=== PATIENT | female | born 1975 ===

== ENCOUNTER 2021-08-14 09:14 | Outpatient (REF) | payer OTHER, SELFPAY | END 2021-08-14 09:15 | disposition home or self-care (01) | LOC: HO.LAB 09:14 | PROVIDERS: PCP Internal Medicine; Visit Provider Internal Medicine | DX: Z20.822 Contact with and (suspected) exposure to COVID-19 (principal) | CPT/HCPCS: C9803; U0003; U0005 ==

== ENCOUNTER 2022-02-05 09:25 | Emergency (ER) | payer OTHER, SELFPAY ==
--- NOTE | ~2022-02-05 | CT_ITS ---
EXAMINATION: CT ABDOMEN AND PELVIS WITHOUT CONTRAST CLINICAL INFORMATION: Left-sided abdominal pain COMPARISON: CT abdomen pelvis 08/27/2019 TECHNIQUE: Multidetector volumetric imaging was performed from the superior aspect of the liver through the pubic symphysis. Sagittal and coronal reformatted images were obtained on the technologist's workstation. This CT examination was performed using dose optimization techniques as appropriate, variously including the following: *Automated exposure control *Adjustment of mA and/or kV according to patient size (this includes techniques or standardized protocols for targeted exams where dose is matched to indication/reason for exam; i.e. extremities or head) *Use of iterative reconstruction technique DLP: 551 mGy-cm FINDINGS: LUNG BASES: The lung bases are clear. Heart size is normal. There is a small hiatal hernia. LIVER, GALLBLADDER, AND BILIARY TREE: The liver is normal in size, shape, and attenuation. No focal hepatic lesion or biliary ductal dilatation is present. The gallbladder is unremarkable with no evidence of radiopaque gallstones, gallbladder wall thickening, or obvious pericholecystic inflammatory changes. PANCREAS: Unremarkable. SPLEEN: Unremarkable. ADRENAL GLANDS: Unremarkable. KIDNEYS AND URETERS: There is a 5 mm radiopaque calculi left UVJ with mild hydronephrosis. In addition there are 4 mm radiopaque calculi in upper and lower pole left kidney. There are approximately 8.10 cm from the skin line. There are two 3 mm radiopaque calculi upper pole BLADDER: Unremarkable. GASTROINTESTINAL TRACT: There is scattered diverticula and stool seen throughout the colon without distention. The small bowel loops are normal caliber. ABDOMINAL WALL: No significant hernia is appreciated. LYMPH NODES: Normal. VASCULAR: There is atherosclerotic calcification of abdominal aorta without aneurysmal dilatation. PELVIC VISCERA: The uterus is not visualized likely surgically removed. No pelvic mass of free fluid seen. There is no abnormal pelvic lymph nodes. OSSEOUS STRUCTURES: No lytic or sclerotic process seen. There is mild ventral spondylosis. CT/CT abdomen pelvis wo con IMPRESSION: 5 mm obstructive radiopaque calculi left UPJ with mild hydronephrosis. Nonobstructive bilateral radiopaque renal calculi. Colonic diverticulosis without diverticulitis. Fleischner guidelines were followed.
[2022-02-05 09:31] VITALS: BP 136/79; PULSE 85; RESP 17; TEMP 36.6; O2SAT 98; BMI 31.1
--- NOTE | 2022-02-05 11:29 | ED_ITS ---
HPI - Abdominal Pain General Chief Complaint: Abdominal Pain Stated Complaint: abd pain/lower back pain/nausea Time Seen by Provider: 02/05/22 11:28 Source: patient Mode of arrival: ambulatory Limitations: no limitations History of Present Illness HPI narrative: 46-year-old female came in for evaluation of left-sided abdominal pain. Pain started 2 days ago as a dull aching pain mainly in the left lower quadrant radiates to the left CVA area, pain is constant for 2 days, causing nausea but no vomiting, no fever chills, normal bowel movement, declined any dysuria, no urinary frequency. Patient had surgical history of hysterectomy and appendectomy. Patient had similar pain in the past when she had a kidney stone that required surgical intervention for kidney stone removal. Related Data Previous Rx's Medication Instructions Recorded oxycodone 5 mg tablet 5 mg PO Q8H PRN #7 tab 02/05/22 prednisone 20 mg tablet 20 mg PO BID #8 tab 02/05/22 tamsulosin 0.4 mg capsule (Flomax) 0.4 mg PO DAILY #6 cap 02/05/22 Allergies Allergy/AdvReac Type Severity Reaction Status Date / Time clindamycin [CLINDAMYCIN] Allergy Unknown UNKNOWN Unverified 08/08/20 15:56 azithromycin Allergy Diarrhea Verified 02/05/22 11:50 Clindamycin HCl Allergy Unknown Diarrhea Uncoded 02/05/22 11:50 Review of Systems Review of Systems All other systems are reviewed and are negative Constitutional: Reports as per HPI and Reports no additional constitutional complaints Eyes: Reports as per HPI and Reports no additional eye complaints Reports system reviewed and no additional complaints, except as documented Cardiovascular: Reports as per HPI and Reports no additional cardiovascular complaints Respiratory: Reports as per HPI and Reports no additional respiratory complaints Gastrointestinal: Reports as per HPI and Reports no additional gastrointestinal complaints Genitourinary: Reports no additional female genitourinary complaints Musculoskeletal: Reports no additional musculoskeletal complaints Skin/Breast: Reports system reviewed and no additional complaints, except as docu Psychiatric: Reports no additional psychiatric complaints Endocrine: Reports no additional endocrine complaints Hematologic/Lymphatic: Reports no additional hematologic/lymphatic complaints Allergic/Immunologic: Reports no additional allergic/immunologic complaints Reports system reviewed and no additional complaints, except as documented and Reports Abnormal speech present PMFSH Past Medical History Medical History Asthma Psoriasis Social History Social History Alcohol intake: never Patient Tobacco Use Status: Never used Tobacco Use of substances other than those prescribed or required for medical reasons: No Advance Directives: No Advance Directives Information Provided: No Patient : No Physical Exam ED Vital Signs: Vital Signs - 24 hr 02/05/22 09:31 02/05/22 11:36 Temperature 98 F Pulse Rate 85 71 Respiratory Rate 17 14 Blood Pressure 136/79 116/64 Pulse Oximetry 98 100 BMI result Body Mass Index 31.1 Vital signs have been reviewed as appeared to be correct. Blood pressure normal. Heart rate normal. Respiration rate normal. Temperature normal. Oxygen saturation normal. Appearance: Alert. Oriented X3. No acute distress. Head: Normal external exam. Normocephalic. Atraumatic. No [place] signs noted. No raccoon eyes noted Eyes: PERRLA. EOMI. Conjunctiva and sclera normal. Eyelids normal. ENT: TM's Normal. Pharynx normal. Uvula midline. Moist mucous membranes. No trismus noted. No drooling noted. No muffled voice noted. Neck: Normal inspection. Neck supple. FROM. No adenopathy. Thyroid Normal. No meningeal signs. No neck mass noted. CVS: Normal heart rate and rhythm. Heart sound normal. No murmurs noted. Pulses normal throughout. Respiratory: No respiratory distress. Painless inspiration. Breath sounds normal. No wheezes/rales/rhonchi noted. Chest nontender. No accessory muscle usage noted or decreased air movement noted. Abdomen: Soft and nontender. Bowel sounds normal in all 4 quadrants. No distention noted. No organomegaly noted. No visible injury noted. Back: Left CVA tenderness. Full range of motion noted. Skin: Skin warm and dry. Normal skin color. Normal skin turgor. No rashes/lesions/lacerations noted. Extremities: No lower extremity edema. Extremities exhibit normal range of motion. Extremities nontender. Neuro: Oriented X 3. Cranial nerve exam: II-XII are grossly intact No motor deficit. No sensory deficit. Reflexes normal. Course Course Course Narrative: Assessment and plan. 46-year-old female history of kidney stone came in with left-sided abdominal/left flank pain, CT showed 5 mm obstructing stone in the UPJ, the case was reviewed with Dr. Davis from Urology who recommended to discharge patient home with prednisone/Flomax/analgesia/outpatient follow-up with him. Patient was instructed to return to the ED if worsening of his symptoms. MDM - Abdominal Pain Lab Data Attestation: I reviewed the patient's lab results. Result diagrams: 02/05/22 11:42 02/05/22 11:42 Labs: Lab Results 02/05/22 02/05/22 02/05/22 Range/Units 11:42 11:42 11:42 WBC 8.2 (4.8-10.8) X10*3/uL RBC 4.37 (4.20-5.50) X10*6/uL Hgb 12.9 (12.0-16.0) g/dl Hct 39.9 (37.0-47.0) % MCV 91.3 (80.0-98.0) fL MCH 29.5 (27.0-33.0) pg MCHC 32.3 (31.0-35.0) g/dl RDW 12.3 (11.0-16.0) % Plt Count 235 (160-400) X10*3/uL MPV 10.3 (9.4-12.3) fL Immature Gran % (Auto) 0.2 (0.0-0.4) % Neut % (Auto) 68.6 (45-73) % Lymph % (Auto) 24.2 (20-40) % [place] % (Auto) 6.3 (2-11) % Eos % (Auto) 0.5 (0-4) % Baso % (Auto) 0.2 (0-2) % Lymph # (Auto) 2.0 (1.2-4.9) X10*3/uL [place] # (Auto) 0.5 (0.1-1.2) X10*3/uL Eos # (Auto) 0.0 (0.0-0.4) X10*3/uL Baso # (Auto) 0.0 (0.0-0.2) X10*3/uL Abs Immat Gran (auto) 0.02 (0.00-0.03) X10*3/uL Absolute Neuts (auto) 5.6 (2.0-8.3) x10*3/uL Absolute Nucleated RBC 0.000 (0.0-0.012) X10*3/uL Nucleated RBC % (auto) 0.0 (0.0-0.2) /100WBC Sodium 140 (135-145) mmol/L Potassium 4.7 (3.3-5.1) mmol/L Chloride 106 (96-108) mmol/L Carbon Dioxide 26 (22-29) mmol/L Anion Gap 13 (12-20) BUN 15 (9-16) mg/dL Creatinine 0.61 (0.5-1.4) mg/dL Estim Creat Clear Calc 108.4 Estimated GFR > 60 Random Glucose 111 (60-115) mg/dL Calcium 9.6 (8.4-10.2) mg/dL Total Bilirubin 0.3 (0.0-1.0) mg/dL Direct Bilirubin < 0.2 (0.0-0.5) mg/dL AST 20 (5-31) U/L ALT 19 (0-31) U/L Alkaline Phosphatase 59 (39-117) U/L Total Protein 7.1 (6.5-8.0) g/dL Albumin 4.1 (3.5-5.0) g/dL Lipase 54 (8-78) U/L Urine Color YELLOW Urine Appearance HAZY Urine pH 5.5 (5.0-8.0) Ur Specific [place] >= 1.030 H (1.005-1.025) Urine Protein NEG (NEG-TRACE) MG/DL Urine Glucose (UA) NEG (NEG) MG/DL Urine Ketones NEG (NEG) MG/DL Urine Blood 3+ H (NEG) Urine Nitrite NEG (NEG) Ur Leukocyte Esterase NEG (NEG) Urine RBC 15-29 H (0) /HPF Urine WBC 1-4 (0-4) /HPF Ur Squamous Epith Cells 2+ /LPF Urine Bacteria TRACE /LPF Urine Mucus 2+ /LPF Urine Test (NEGATIVE) 02/05/22 Range/Units 11:42 WBC (4.8-10.8) X10*3/uL RBC (4.20-5.50) X10*6/uL Hgb (12.0-16.0) g/dl Hct (37.0-47.0) % MCV (80.0-98.0) fL MCH (27.0-33.0) pg MCHC (31.0-35.0) g/dl RDW (11.0-16.0) % Plt Count (160-400) X10*3/uL MPV (9.4-12.3) fL Immature Gran % (Auto) (0.0-0.4) % Neut % (Auto) (45-73) % Lymph % (Auto) (20-40) % [place] % (Auto) (2-11) % Eos % (Auto) (0-4) % Baso % (Auto) (0-2) % Lymph # (Auto) (1.2-4.9) X10*3/uL [place] # (Auto) (0.1-1.2) X10*3/uL Eos # (Auto) (0.0-0.4) X10*3/uL Baso # (Auto) (0.0-0.2) X10*3/uL Abs Immat Gran (auto) (0.00-0.03) X10*3/uL Absolute Neuts (auto) (2.0-8.3) x10*3/uL Absolute Nucleated RBC (0.0-0.012) X10*3/uL Nucleated RBC % (auto) (0.0-0.2) /100WBC Sodium (135-145) mmol/L Potassium (3.3-5.1) mmol/L Chloride (96-108) mmol/L Carbon Dioxide (22-29) mmol/L Anion Gap (12-20) BUN (9-16) mg/dL Creatinine (0.5-1.4) mg/dL Estim Creat Clear Calc Estimated GFR Random Glucose (60-115) mg/dL Calcium (8.4-10.2) mg/dL Total Bilirubin (0.0-1.0) mg/dL Direct Bilirubin (0.0-0.5) mg/dL AST (5-31) U/L ALT (0-31) U/L Alkaline Phosphatase (39-117) U/L Total Protein (6.5-8.0) g/dL Albumin (3.5-5.0) g/dL Lipase (8-78) U/L Urine Color Urine Appearance Urine pH (5.0-8.0) Ur Specific [place] (1.005-1.025) Urine Protein (NEG-TRACE) MG/DL Urine Glucose (UA) (NEG) MG/DL Urine Ketones (NEG) MG/DL Urine Blood (NEG) Urine Nitrite (NEG) Ur Leukocyte Esterase (NEG) Urine RBC (0) /HPF Urine WBC (0-4) /HPF Ur Squamous Epith Cells /LPF Urine Bacteria /LPF Urine Mucus /LPF Urine Test NEGATIVE (NEGATIVE) Imaging Data CT scan - abdomen: Attestation: I personally reviewed and interpreted this imaging study as follows: Radiologist's impression: 5 mm obstructive radiopaque calculi left UPJ with mild hydronephrosis. Nonobstructive bilateral radiopaque renal calculi.Colonic diverticulosis without diverticulitis.? ? Discharge Plan Discharge Clinical Impression: Calculus of kidney, Renal colic Patient Disposition: Home, Self-Care Instructions: Renal Colic (ED) Prescriptions: New prednisone 20 mg tablet 20 mg PO BID Qty: 8 0RF tamsulosin [Flomax] 0.4 mg capsule 0.4 mg PO DAILY Qty: 6 0RF oxycodone 5 mg tablet 5 mg PO Q8H PRN (Reason: pain) Qty: 7 0RF Referrals: Lily Hobbs MD [Primary Care Provider] - 2 days Hawk Davis MD [Physician] - 2 days
[2022-02-05 11:36] VITALS: BP 116/64; PULSE 71; RESP 14; O2SAT 100
[2022-02-05 11:51] LABS: MANUAL DIFF FLAG NO
[2022-02-05 11:53] LABS: Appearance Urine HAZY; Color Urine YELLOW; Glucose Urine UA NEG (NEG); Leukocyte Esterase Urine NEG (NEG); Nitrite Urine NEG (NEG); PH 5.5 (5.0-8.0); Specific Gravity - Urine >= 1.030 (1.005-1.025); UACC Culture Trigger NO; Urine Blood 3+ (NEG); Urine Ketones NEG (NEG); Urine Protein NEG (NEG-TRACE)
[2022-02-05 11:54] LABS: Basophils Percent Auto 0.2 % (0-2); Eosinophils Percent Auto 0.5 % (0-4); Hematocrit 39.9 % (37.0-47.0); Hemoglobin 12.9 g/dl (12.0-16.0); Imm Gran Abs Auto 0.02 X10*3/uL (0.00-0.03); Imm Gran Pct Auto 0.2 % (0.0-0.4); Lymphocytes Percent Auto 24.2 % (20-40); Mean Corpuscular HGB Conc 32.3 g/dl (31.0-35.0); Mean Corpuscular Hemoglobin 29.5 pg (27.0-33.0); Mean Corpuscular Volume 91.3 fL (80.0-98.0); Mean Platelet Volume 10.3 fL (9.4-12.3); Monocytes Absolute Auto 0.5 X10*3/uL (0.1-1.2); Monocytes Percent Auto 6.3 % (2-11); Neutrophils Absolute Auto 5.6 x10*3/uL (2.0-8.3); Neutrophils Percent Auto 68.6 % (45-73); Platelet Count 235 X10*3/uL (160-400); Red Blood Count 4.37 X10*6/uL (4.20-5.50); Red Cell Distribution Width 12.3 % (11.0-16.0); White Blood Count 8.2 X10*3/uL (4.8-10.8)
[2022-02-05 11:56] LABS: UPreg QC Valid YES; Urine Pregnancy NEGATIVE (NEGATIVE)
[2022-02-05 12:08] LABS: Bacteria Urine TRACE /LPF; Mucus Urine 2+ /LPF; Squamous Epithelial Cell Urine 2+ /LPF
[2022-02-05 12:09] LABS: Alanine Aminotransferase 19 U/L (0-31); Albumin Level 4.1 g/dL (3.5-5.0); Alkaline Phosphatase 59 U/L (39-117); Anion Gap 13 (12-20); Aspartate Amino Transferase 20 U/L (5-31); Bilirubin Direct < 0.2 mg/dL (0.0-0.5); Bilirubin Total 0.3 mg/dL (0.0-1.0); Blood Urea Nitrogen 15 mg/dL (9-16); Calcium 9.6 mg/dL (8.4-10.2); Carbon Dioxide 26 mmol/L (22-29); Chloride 106 mmol/L (96-108); Creatinine Clr Calc Pharmacy 108.4; Estimated Glomerular Filt Rate > 60; Glucose Random 111 mg/dL (60-115); Lipase 54 U/L (8-78); Potassium 4.7 mmol/L (3.3-5.1); Sodium 140 mmol/L (135-145); Total Protein 7.1 g/dL (6.5-8.0)
[2022-02-05] MEDS: 0.9 % Sodium Chloride 1,000 ML 999 ML IV (12:16)
[2022-02-05 15:18] VITALS: BP 117/67; PULSE 72; RESP 16; O2SAT 100
== END 2022-02-05 15:33 | disposition home or self-care (01) ==
PROVIDERS: Emergency Provider Emergency Medicine; PCP Internal Medicine
DX: N13.2 Hydronephrosis with renal and ureteral calculous obstruction (principal); Z90.710 Acquired absence of both cervix and uterus; Z87.442 Personal history of urinary calculi
CPT/HCPCS: 36415; 74176; 80048; 80076; 81001; 81025; 83690; 85025; 96360; 99284

== ENCOUNTER → 2022-02-17 10:04 | Outpatient (BNVA) | payer OTHER, SELFPAY | PROVIDERS: PCP Internal Medicine | DX: Z13.89 Encounter for screening for other disorder (principal) ==

== ENCOUNTER 2022-03-11 07:20 | Day surgery (SDC) | payer OTHER, SELFPAY ==
[2022-03-03 11:38] VITALS: BMI 30.2
--- NOTE | 2022-03-06 11:02 | HO.ANESPROP2 ---
Documented by User: Lindsey Willis NP 03/06/22 11:04 HPI - Anesthesia Eval Consult details Narrative: 46yo F for Left ESWL No previous ESWL PMFSH Active Problems Active Problems: All Active Problems (Updated 03/03/22 @ 11:21 by Yolanda Ng, RN) Renal calculi (Acute) Past Medical History Medical History (Updated 03/03/22 @ 11:21 by Yolanda Ng RN) Arthritis of left knee Asthma Migraines Psoriasis Renal calculi Seizure in childhood Surgical History Surgical History (Updated 03/03/22 @ 11:21 by Yolanda Ng, LULU) History of appendectomy History of cystoscopy History of hysterectomy Social History Social History Are you a primary child care provider to a significant other at home: No Do you presently have visiting nurse or other home services: No Alcohol intake: never Patient Tobacco Use Status: Never used Tobacco Use of substances other than those prescribed or required for medical reasons: No Have you been hit, kicked, punched, or otherwise hurt by someone within the past year? If so, by whom?: No Are you DNR?: No Advance Directives: No Advance Directives Information Provided: Yes Advance Directives on File: No Recently lost weight without trying: No Eating poorly because of decreased appetite: No Nutrition Risks: No Nutritional Risk Patient : No Meds Allergies Allergy/AdvReac Type Severity Reaction Status Date / Time clindamycin [CLINDAMYCIN] Allergy Unknown Diarrhea Verified 03/03/22 11:11 azithromycin Allergy Diarrhea Verified 03/03/22 11:11 oxycodone AdvReac Tachycardia Verified 03/03/22 11:35 Home Medications Medication Instructions Recorded Confirmed Last Taken Type hydroxyzine HCl 25 mg tablet 25 mg PO BID 02/17/22 03/03/22 Unknown History Cosentyx Q4W 03/03/22 Unknown History albuterol sulfate 90 mcg/actuation 1 - 2 puff INHALATION Q4-6H PRN 03/03/22 03/03/22 Unknown History aerosol inhaler fluticasone furoate 100 1 puff INHALATION DAILY 03/03/22 03/03/22 Unknown History mcg-vilanterol 25 mcg/dose inhalation powder (Breo Ellipta) Exam Exam Date and Time: March 06, 2022 1102 Height,Weight and Vital Signs: Height 5 ft 2 in Weight 74.843 kg Pertinent Lab Results Pertinent Lab Results: Laboratory Tests 02/05/22 02/05/22 11:42 11:42 WBC 8.2 Hgb 12.9 Hct 39.9 Plt Count 235 Sodium 140 Potassium 4.7 Chloride 106 Carbon Dioxide 26 BUN 15 Creatinine 0.61 Assessment and Plan Assessment Anesthesia Assessment: Chart Reviewed Documented by User: Rai Christensen MD 03/11/22 08:07 [facility] Past Medical History Medical History (Updated 03/03/22 @ 11:21 by Yolanda Ng RN) Arthritis of left knee Asthma Migraines Psoriasis Renal calculi Seizure in childhood Family History Family history of problems with anesthesia: No Surgical History Surgical History (Updated 03/03/22 @ 11:21 by Yolanda Ng RN) History of appendectomy History of cystoscopy History of hysterectomy History of Problems with Anesthesia: No Social History Social History Are you a primary child care provider to a significant other at home: No Do you presently have visiting nurse or other home services: No Alcohol intake: never Patient Tobacco Use Status: Never used Tobacco Use of substances other than those prescribed or required for medical reasons: No Have you been hit, kicked, punched, or otherwise hurt by someone within the past year? If so, by whom?: No Are you DNR?: No Advance Directives: No Advance Directives Information Provided: Yes Advance Directives on File: No Recently lost weight without trying: No Eating poorly because of decreased appetite: No Nutrition Risks: No Nutritional Risk Patient : No Meds Allergies Allergy/AdvReac Type Severity Reaction Status Date / Time clindamycin [CLINDAMYCIN] Allergy Unknown Diarrhea Verified 03/03/22 11:11 azithromycin Allergy Diarrhea Verified 03/03/22 11:11 oxycodone AdvReac Tachycardia Verified 03/03/22 11:35 Home Medications Medication Instructions Recorded Confirmed Last Taken Type hydroxyzine HCl 25 mg tablet 25 mg PO BID 02/17/22 03/03/22 Unknown History Cosentyx Q4W 03/03/22 Unknown History albuterol sulfate 90 mcg/actuation 1 - 2 puff INHALATION Q4-6H PRN 03/03/22 03/03/22 Unknown History aerosol inhaler fluticasone furoate 100 1 puff INHALATION DAILY 03/03/22 03/03/22 Unknown History mcg-vilanterol 25 mcg/dose inhalation powder (Breo Ellipta) Exam Airway Mallampati Class: II TM Dist: >3cm Neck ROM: Full Loose/Missing/Broken Teeth: No Heart: [id number]+[id number] Lungs: cta b/l Assessment and Plan Assessment Anesthesia Assessment: Anesthesia Plan Discussed Final Anesthetic Review Family History of Problems with Anesthesia: No History of Problems with Anesthesia: No NPO: Yes ASA Class: II Final Preanesthetic Review: No Changes in Pt Med Stat, Meds/Allgs Chart Reviewed, Consent Obtained/Reviewed and Anes Risks/Benef Reviewed Patient Risk: Low Procedure Risk: Low Assessment/Block/Sedation in SS: Assess/Block/Sedation-SS Anesthetic Plan Anesthetic Plan: MAC: and Agree w/ Assess. and Plan Disposition: Standard PACU
[2022-03-11] VITALS (9 sets, daily range): BP systolic 104–119; BP diastolic 58–72; PULSE 63–81; RESP 16–18; TEMP 35.6–36.3; O2SAT 95–100
--- NOTE | ~2022-03-11 | XR_ITS ---
EXAMINATION: XR ABDOMEN KUB CLINICAL INDICATION: ESWL COMPARISON: CT scan of February 05, 2022 and KUB of September 06, 2019 TECHNIQUE: AP view of the abdomen. FINDINGS: The bowel gas pattern is normal with no evidence of ileus or obstruction. The bones are unremarkable. Overlying the region of the expected location of the right kidney there is a 3 mm radiopaque density which may represent a renal calculus. Psoas margins intact. About the left transverse process of L2 there is a 4 mm calcification which may represent a proximal left ureteral calculus. There are also noted to be 2 adjacent 2 mm calculi in 2 adjacent 4 mm calculi about the contour of the left kidney. XR/XR KUB IMPRESSION: Bilateral nephrolithiasis with 4 mm calculus in the location of the proximal left ureter.
[2022-03-11] MEDS: Lactated Ringers 1,000 ML 100 ML IVCONT (07:47)
[2022-03-11] MEDS: Acetaminophen 325 MG TABLET 650 MG PO (07:47)
--- NOTE | 2022-03-11 08:24 | MHC.SHP ---
Pre-Procedural Eval Section A Date of Service: 03/11/22 The patient is an INPATIENT: No Changes since office visit: No Cold of Flu in the past 2 weeks, No New Medical Problems, No Changes in Medication and No Patient answered all questions The History & Physical has been completed within 30 days and I have reviewed it.: Yes Section B Chief Complaint: kidney stone Details of Present Illness: Left ESWL Allergies: Allergies Allergy/AdvReac Type Severity Reaction Status Date / Time clindamycin [CLINDAMYCIN] Allergy Unknown Diarrhea Verified 03/03/22 11:11 azithromycin Allergy Diarrhea Verified 03/03/22 11:11 oxycodone AdvReac Tachycardia Verified 03/03/22 11:35 Review of Systems Sugical H&P ROS: Negative: Constitution, Cardiovascular, Respiratory, Neurological, Psychiatric, Hem-Onc, Allergic/Immunologic, Gastrointestinal, Genitourinary, Musculoskeletal, Integumentary, Endocrine and Eyes/Ears/Nose/Throat Exam Surgical H&P Exam: Normal: HEENT, Normal: Heart, Normal: Lungs, Normal: Extremities, Normal: Abdomen, Normal: Skin and Normal: Neurological Plan Diagnosis/Plan: Unchanged (Left ESWL) I have reviewed the history and physical and performed a pertinent physical examination on my patient. No changes have occurred unless specified.
--- NOTE | 2022-03-11 08:46 | W.PM.OPN ---
Operative Note Operative Note Date of Service: 03/11/22 Narrative: PreOperative Diagnosis: Left upper ureter stone Post Operative Diagnosis: Left upper ureter stone Procedure: Left ureteric ESWL Surgeon: Dr Hawk Davis Anesthesia: mac/sedation Indications for procedure: The patient understands ESWL may be a staged procedure and subsequent intervention may be required based on imaging after ESWL. They also understand there is a risk of bleeding to the kidney, infection, damage to adjacent organs, and stone migration following the procedure. - Imaging - left 5 mm upper ureteric stone Procedure: After informed consent was verified the patient was brought to the operating room and placed in a supine position. Anesthesia was performed per protocol. Safety pause time-out was performed. Imaging was displayed in the room and laterality confirmed. ESWL was performed. Targeting with fluoroscopy Power stable at 120 HZ A total of 3000 shocks were given. Targetted imaging with ultrasound/fluoroscopy showed stone smudging suggestive of disintegration. The patient tolerated the procedure well and was transferred to the recovery area upon completion. Post procedure imaging will be organized. There was no evidence for flank discoloration.
[2022-03-11] MEDS: Ketorolac Tromethamine 15 MG/ML VIAL IVPUSH (09:23)
[2022-03-11] MEDS: traMADoL HCL 50 MG TABLET PO (09:27)
[2022-03-11] MEDS: fentaNYL citrate/PF 100 MCG/2 ML VIAL 50 MCG IVPUSH (09:35)
== END 2022-03-11 10:45 | disposition home or self-care (01) ==
PROVIDERS: PCP Internal Medicine; Visit Provider Urology
PROC: (CPT 50590; principal; 2022-03-11 10:00)
DX: N20.0 Calculus of kidney (principal); Z87.442 Personal history of urinary calculi; J45.909 Unspecified asthma, uncomplicated; L40.9 Psoriasis, unspecified; Z88.1 Allergy status to other antibiotic agents
CPT/HCPCS: 50590; 74018; J1885; J2250; J3010

== ENCOUNTER → 2022-04-03 10:38 | Outpatient (BNVA) | payer OTHER, SELFPAY | PROVIDERS: PCP Internal Medicine; Visit Provider Urology | DX: N20.0 Calculus of kidney (principal) ==

== ENCOUNTER 2022-04-21 14:36 | Outpatient (REF) | payer OTHER, SELFPAY ==
--- NOTE | ~2022-04-21 | US_ITS ---
EXAMINATION: US RETROPERITONEAL LIMITED (RENAL ONLY) CLINICAL INFORMATION: Calculus of kidney. COMPARISON: XR abdomen KUB 03/11/2022 and 09/06/2019. CT abdomen and pelvis without contrast 02/05/2022. US retroperitoneal limited (renal only) 11/08/2019. TECHNIQUE: Real-time imaging of the kidneys. FINDINGS: RIGHT KIDNEY: 12.1 x 4.7 x 5.8 cm (SAG x AP x TRV). There is increased echogenicity of the renal pyramids. Renal cortical thickness is normal. No focal parenchymal lesions or hydronephrosis. There are multiple nonobstructive calculi, largest in the upper pole measuring 0.4 cm. LEFT KIDNEY: 11.6 x 5.2 x 5.3 cm (SAG x AP x TRV). There is increased echogenicity of the renal pyramids. Renal cortical thickness is normal. No focal parenchymal lesions or hydronephrosis. There are multiple nonobstructive calculi, largest in the lower pole measuring 0.7 cm. US/US renal BI IMPRESSION: Nonobstructive bilateral renal calculi. Increased echogenicity of the renal pyramids which could be seen with medullary nephrocalcinosis. Recommend clinical correlation.
== END 2022-04-21 14:37 | disposition home or self-care (01) ==
LOC: HO.HMGCX 14:36
PROVIDERS: Visit Provider Urology
DX: N20.0 Calculus of kidney (principal)
CPT/HCPCS: 76775

== ENCOUNTER 2022-10-26 15:59 | Outpatient (REF) | payer OTHER, SELFPAY ==
--- NOTE | ~2022-10-26 | US_ITS ---
EXAMINATION: US RETROPERITONEAL LIMITED (RENAL ONLY) CLINICAL INFORMATION: Calculus of kidney. COMPARISON: Renal ultrasound 04/21/2022 and 11/08/2019. X-ray KUB 03/11/2022 and 09/06/2019. CT abdomen and pelvis 02/05/2022. TECHNIQUE: Real-time imaging of the kidneys. FINDINGS: RIGHT KIDNEY: 10.8 x 5.1 x 5.2 cm (SAG x AP x TRV). The kidney is normal in size, and contour. There are echogenic renal pyramids suggestive of medullary nephrocalcinosis. Renal cortical thickness is normal. There are multiple stones, largest measuring 5 mm. No focal parenchymal lesions or hydronephrosis. LEFT KIDNEY: 10.7 x 5.1 x 5.6 cm (SAG x AP x TRV). The kidney is normal in size and contour. There are echogenic renal pyramids suggestive of medullary nephrocalcinosis. Renal cortical thickness is normal. There are multiple stones, largest measuring 5 mm. No focal parenchymal lesions or hydronephrosis. US/US renal BI IMPRESSION: Bilateral renal stones and question medullary nephrocalcinosis. No hydronephrosis..
== END 2022-10-26 16:00 | disposition home or self-care (01) ==
LOC: HO.US 15:59
PROVIDERS: Visit Provider Urology
DX: N20.0 Calculus of kidney (principal)
CPT/HCPCS: 76775

== ENCOUNTER → 2022-11-17 15:02 | Outpatient (BNVA) | payer OTHER, SELFPAY | PROVIDERS: PCP Internal Medicine; Visit Provider Urology | DX: N20.0 Calculus of kidney (principal) ==

== ENCOUNTER 2023-04-01 10:21 | Emergency (ER) | payer OTHER, SELFPAY ==
--- NOTE | ~2023-04-01 | XR_ITS ---
EXAMINATION: XR CHEST CLINICAL INFORMATION: Dyspnea for one week. COMPARISON: None available. TECHNIQUE: 2 views of the chest were obtained. FINDINGS: Normal appearance of the cardiomediastinal silhouette. Mild left greater than right platelike opacities in the lung bases. No pleural effusion or pneumothorax. No acute osseous abnormalities. The visualized upper abdomen is within normal limits. XR/XR chest 2V IMPRESSION: Mild platelike opacities in the lung bases are in favor to represent subsegmental atelectasis. Although early infiltrates cannot be entirely excluded in the appropriate clinical context.
--- NOTE | 2023-04-01 10:22 | ECG_ITS ---
Test Reason : chest pain Blood Pressure : / mmHG Vent. Rate : 077 BPM Atrial Rate : 077 BPM P-R Int : 130 ms QRS Dur : 098 ms QT Int : 364 ms P-R-T Axes : 047 020 050 degrees QTc Int : 411 ms Normal sinus rhythm Low voltage QRS Borderline ECG No previous ECGs available Referred By: Generic ED Physician Electronically Signed By:JENN BAILEY
[2023-04-01 10:33] VITALS: BP 136/73; PULSE 83; RESP 20; TEMP 36.6; O2SAT 99; BMI 31.1
--- NOTE | 2023-04-01 10:51 | ED_ITS ---
HPI - General Adult General Chief complaint: Upper Respiratory Symptoms Stated complaint: SOB/ Chest pain Time Seen by Provider: 04/01/23 10:40 Source: patient Mode of arrival: ambulatory Limitations: no limitations History of Present Illness HPI narrative: 48-year-old female presents with shortness of breath. The shortness of breath started 1 week ago. The symptoms are constant. Is worse with exertion. She a lso has a pleuritic chest pain. She has a nonproductive cough. She denies any fevers or chills. She has been using albuterol nebulizers and inhalers without relief. She has been on steroids for 1 week. She had a chest x-ray on Wednesday which was reportedly normal. She does describe some orthopnea, but denies any PND or lower extremity edema. No history of PE or DVT. She is a nonsmoker. No sick contacts that she is aware of. Related Data Home Medications Medication Instructions Recorded Confirmed hydroxyzine HCl 25 mg tablet 25 mg PO BID 02/17/22 11/17/22 Cosentyx Q4W 03/03/22 11/17/22 albuterol sulfate 90 mcg/actuation 1 - 2 puff inhalation Q4-6H PRN 03/03/22 11/17/22 aerosol inhaler cough fluticasone furoate 100 1 puff inhalation DAILY 03/03/22 11/17/22 mcg-vilanterol 25 mcg/dose inhalation powder (Breo Ellipta) Previous Rx's Medication Instructions Recorded allopurinol 100 mg tablet 100 mg PO DAILY 90 days #90 tabs 11/17/22 pyridoxine (vitamin B6) 50 mg 50 mg PO DAILY #90 caps 11/17/22 capsule amoxicillin 875 mg tablet 875 mg PO BID #20 tabs 04/01/23 benzonatate 200 mg capsule 200 mg PO TID PRN cough #20 caps 04/01/23 fexofenadine 180 mg tablet 180 mg PO DAILY #20 tabs 04/01/23 (Monik Allergy) fluticasone furoate 200 1 inh inhalation DAILY #60 ea 04/01/23 mcg-vilanterol 25 mcg/dose inhalation powder (Breo Ellipta) fluticasone propionate 50 2 spray intranasal DAILY #16 grams 04/01/23 mcg/actuation nasal spray,suspension (Flonase Allergy Relief) Allergies Allergy/AdvReac Type Severity Reaction Status Date / Time clindamycin [CLINDAMYCIN] Allergy Unknown Diarrhea Verified 11/17/22 15:04 azithromycin Allergy Diarrhea Verified 11/17/22 15:04 oxycodone AdvReac Tachycardia Verified 11/17/22 15:04 [facility] Past Medical History Medical History Arthritis of left knee Asthma Migraines Psoriasis Renal calculi Seizure in childhood Surgical History History of appendectomy History of cystoscopy History of hysterectomy Social History Social History Are you a primary manager care management to a significant other at home: No Do you presently have visiting nurse or other home services: No Alcohol intake: never Patient Tobacco Use Status: Never used Tobacco Advance Directives: No Advance Directives Information Provided: Yes Physical Exam ED Vital Signs: Vital Signs - 24 hr 04/01/23 10:33 04/01/23 11:04 Temperature 97.9 F Pulse Rate 83 73 Respiratory Rate 20 15 Blood Pressure 136/73 Pulse Oximetry 99 Oxygen Delivery Method Room Air BMI result Body Mass Index 31.1 GEN: Well developed, no acute distress, alert, oriented HEENT: Normocephalic, atraumatic, normal external ears, nose appears normal, no oropharyngeal edema or exudates Eyes: Normal to appearance Neck: Supple, no lymphadenopathy Respiratory: Talks in complete sentences, no respiratory distress, clear to auscultation bilaterally, prolonged expiration Cardiovascular: Regular rate and rhythm, no murmurs rubs or gallops Abdomen: Soft, nontender, nondistended, no guarding, no rebound Back: No CVA tenderness Extremities: No clubbing cyanosis or edema Neurologic: No focal neurologic deficits, cranial nerves 2-12 intact, strength is 5/5 bilaterally Skin: No rash Course Course Course Narrative: Vertebral year old bruise shortness of breath. Exam revealed prolonged expiration, no prior to wheezes or crackles. There is no lower extremity edema. Will treat patient symptomatically, check lab tests and re-evaluate Reevaluation(s) Reevaluation #1: Patient is feeling moderately improved at this time. Will treat for possible sinus/bronchitis. Patient will start nasal steroids, inhaled steroids, amoxicillin, cough suppressant medications Time: 13:27 Medications Administered Discontinued Medications Generic Name Dose Route Start Last Admin Trade Name Kristyn PRN Reason Stop Dose Admin Albuterol Sulfate 5 mg/ 0 mg 04/01/23 10:51 04/01/23 11:00 Albuterol/Ipratropium 3 ml INHALE 04/01/23 10:52 5 each ONCE ONE Administration Medical Decision Making Medical Decision Making [facility] Narrative: Patient presents with acute dyspnea, cough, pleuritic type chest Pain. Differential diagnosis includes upper respiratory infection, pneumonia, COVID, CHF, cardiac chest pain, musculoskeletal chest Doubt PE. Perc criteria are 0. Plan: Treat with DuoNeb, chest x-ray, laboratory analysis were frequent evaluations consider admission based on laboratory results and clinical improvem ent. Differential Diagnosis Differential Diagnoses: The differential diagnosis associated with the presentation includes (See above) Lab Data [facility] Lab Attestation statement: I reviewed the patient's lab results. 04/01/23 12:34 04/01/23 11:56 Labs: Lab Results 04/01/23 04/01/23 04/01/23 Range/Units 11:39 11:39 11:56 WBC (4.8-10.8) X10*3/uL RBC (4.20-5.50) X10*6/uL Hgb (12.0-16.0) g/dl Hct (37.0-47.0) % MCV (80.0-98.0) fL MCH (27.0-33.0) pg MCHC (31.0-35.0) g/dl RDW (11.0-16.0) % Plt Count (160-400) X10*3/uL MPV (9.4-12.3) fL Immature Gran % (Auto) (0.0-0.4) % Neut % (Auto) (45-73) % Lymph % (Auto) (20-40) % [place] % (Auto) (2-11) % Eos % (Auto) (0-4) % Baso % (Auto) (0-2) % Lymph # (Auto) (1.2-4.9) X10*3/uL [place] # (Auto) (0.1-1.2) X10*3/uL Eos # (Auto) (0.0-0.4) X10*3/uL Baso # (Auto) (0.0-0.2) X10*3/uL Abs Immat Gran (auto) (0.00-0.03) X10*3/uL Absolute Neuts (auto) (2.0-8.3) x10*3/uL Absolute Nucleated RBC (0.0-0.012) X10*3/uL Nucleated RBC % (auto) (0.0-0.2) /100WBC Sodium 143 (135-145) mmol/L Potassium 3.7 D (3.3-5.1) mmol/L Chloride 107 (96-108) mmol/L Carbon Dioxide 24 (22-29) mmol/L Anion Gap 16 (12-20) BUN 15 (9-16) mg/dL Creatinine 0.69 (0.5-1.4) mg/dL Estim Creat Clear Calc 93.8 Estimated GFR > 60 Random Glucose 91 (60-115) mg/dL Calcium 9.5 (8.4-10.2) mg/dL Troponin I High Sens (<3.5-17.0) ng/L B-Natriuretic Peptide (<100) pg/mL COVID-19 (DAR) Negative (Negative) COVID-19 Clin Com See Note Influenza Type A (ELÍAS) Negative (Negative) Influenza Type B (ELÍAS) Negative (Negative) Influenza A & B Note See Note 04/01/23 04/01/23 04/01/23 Range/Units 11:56 12:33 12:34 WBC 11.7 H (4.8-10.8) X10*3/uL RBC 4.20 (4.20-5.50) X10*6/uL Hgb 12.1 (12.0-16.0) g/dl Hct 37.3 (37.0-47.0) % MCV 88.8 (80.0-98.0) fL MCH 28.8 (27.0-33.0) pg MCHC 32.4 (31.0-35.0) g/dl RDW 13.2 (11.0-16.0) % Plt Count 307 D (160-400) X10*3/uL MPV 9.2 L (9.4-12.3) fL Immature Gran % (Auto) 0.7 H (0.0-0.4) % Neut % (Auto) 47.3 (45-73) % Lymph % (Auto) 42.0 H (20-40) % [place] % (Auto) 8.8 (2-11) % Eos % (Auto) 0.8 (0-4) % Baso % (Auto) 0.4 (0-2) % Lymph # (Auto) 4.9 (1.2-4.9) X10*3/uL [place] # (Auto) 1.0 (0.1-1.2) X10*3/uL Eos # (Auto) 0.1 (0.0-0.4) X10*3/uL Baso # (Auto) 0.1 (0.0-0.2) X10*3/uL Abs Immat Gran (auto) 0.08 H (0.00-0.03) X10*3/uL Absolute Neuts (auto) 5.6 (2.0-8.3) x10*3/uL Absolute Nucleated RBC 0.000 (0.0-0.012) X10*3/uL Nucleated RBC % (auto) 0.0 (0.0-0.2) /100WBC Sodium (135-145) mmol/L Potassium (3.3-5.1) mmol/L Chloride (96-108) mmol/L Carbon Dioxide (22-29) mmol/L Anion Gap (12-20) BUN (9-16) mg/dL Creatinine (0.5-1.4) mg/dL Estim Creat Clear Calc Estimated GFR Random Glucose (60-115) mg/dL Calcium (8.4-10.2) mg/dL Troponin I High Sens < 2.7 (<3.5-17.0) ng/L B-Natriuretic Peptide 24 (<100) pg/mL COVID-19 (DAR) (Negative) COVID-19 Clin Com Influenza Type A (ELÍAS) (Negative) Influenza Type B (ELÍAS) (Negative) Influenza A & B Note Independent Interpretation I performed an independent interpretation of an: EKG (Normal sinus rhythm heart rate 77, no acute ST elevations or depressions, no prolonged intervals, low voltage) and Plain X-Ray Prescription Management I considered prescription management with: Antibiotic Chronic Conditions Patient?s care impacted by: Other (Asthma) Discharge Plan Discharge Clinical Impression: Acute dyspnea Patient Disposition: Home, Self-Care Instructions: Asthma (ED), How to Use a Metered-Dose Inhaler (ED) Prescriptions: New fluticasone propionate [Flonase Allergy Relief] 50 mcg/actuation spray,suspension 2 spray intranasal DAILY Qty: 16 0RF Rx Instructions: administer into each nostril amoxicillin 875 mg tablet 875 mg PO BID Qty: 20 0RF benzonatate 200 mg capsule 200 mg PO TID PRN (Reason: cough) Qty: 20 0RF fluticasone furoate-vilanterol [Breo Ellipta] 200-25 mcg/dose blister with device 1 inh inhalation DAILY Qty: 60 0RF fexofenadine [Monik Allergy] 180 mg tablet 180 mg PO DAILY Qty: 20 0RF No Action albuterol sulfate 90 mcg/actuation HFA aerosol inhaler 1 - 2 puff inhalation Q4-6H PRN (Reason: cough) Breo Ellipta 100-25 mcg/dose blister with device 1 puff inhalation DAILY Cosentyx Q4W hydroxyzine HCl 25 mg tablet 25 mg PO BID pyridoxine (vitamin B6) 50 mg capsule 50 mg PO DAILY Qty: 90 1RF allopurinol 100 mg tablet 100 mg PO DAILY 90 Days Qty: 90 1RF Referrals: Gabby Hoff MD [Primary Care Provider] - 3 days Stand Alone Forms: Work/School Release
[2023-04-01 11:04] VITALS: PULSE 73; RESP 15; O2SAT 99
[2023-04-01 12:02] LABS: COVID-19 Test Negative (Negative); IDNOW Serial# 08D9AD1C; IDNOW Serial# BCCEAD1C; Influenza A Negative (Negative); Influenza B2 Negative (Negative)
[2023-04-01 12:25] LABS: Anion Gap 16 (12-20); Blood Urea Nitrogen 15 mg/dL (9-16); Calcium 9.5 mg/dL (8.4-10.2); Carbon Dioxide 24 mmol/L (22-29); Chloride 107 mmol/L (96-108); Creatinine Clr Calc Pharmacy 93.8; Estimated Glomerular Filt Rate > 60; Glucose Random 91 mg/dL (60-115); Potassium 3.7 mmol/L (3.3-5.1); Sodium 143 mmol/L (135-145)
[2023-04-01 12:31] LABS: Troponin-I High Sensitivity < 2.7 ng/L (<3.5-17.0)
[2023-04-01 12:37] LABS: MANUAL DIFF FLAG NO
[2023-04-01 12:38] LABS: Basophils Absolute Auto 0.1 X10*3/uL (0.0-0.2); Basophils Percent Auto 0.4 % (0-2); Eosinophils Absolute Auto 0.1 X10*3/uL (0.0-0.4); Eosinophils Percent Auto 0.8 % (0-4); Hematocrit 37.3 % (37.0-47.0); Hemoglobin 12.1 g/dl (12.0-16.0); Imm Gran Abs Auto 0.08 X10*3/uL (0.00-0.03); Imm Gran Pct Auto 0.7 % (0.0-0.4); Lymphocytes Absolute Auto 4.9 X10*3/uL (1.2-4.9); Mean Corpuscular HGB Conc 32.4 g/dl (31.0-35.0); Mean Corpuscular Hemoglobin 28.8 pg (27.0-33.0); Mean Corpuscular Volume 88.8 fL (80.0-98.0); Mean Platelet Volume 9.2 fL (9.4-12.3); Monocytes Percent Auto 8.8 % (2-11); Neutrophils Absolute Auto 5.6 x10*3/uL (2.0-8.3); Neutrophils Percent Auto 47.3 % (45-73); Platelet Count 307 X10*3/uL (160-400); Red Cell Distribution Width 13.2 % (11.0-16.0); White Blood Count 11.7 X10*3/uL (4.8-10.8)
[2023-04-01 13:01] LABS: B Type Natriuretic Peptide 24 pg/mL (<100)
== END 2023-04-01 14:29 | disposition home or self-care (01) ==
PROVIDERS: Emergency Provider Emergency Medicine; PCP Internal Medicine
DX: R07.89 Other chest pain (principal); R06.02 Shortness of breath; Z20.822 Contact with and (suspected) exposure to COVID-19; Z20.828 Contact with and (suspected) exposure to other viral communicable diseases; Z79.899 Other long term (current) drug therapy
CPT/HCPCS: 71046; 80048; 83880; 84484; 85025; 87502; 87635; 93005; 94640; 99284

== ENCOUNTER 2023-04-09 08:00 | Outpatient (REF) | payer OTHER, SELFPAY ==
--- NOTE | ~2023-04-09 | US_ITS ---
EXAMINATION: US RETROPERITONEAL LIMITED (RENAL ONLY) CLINICAL INFORMATION: Calculus of kidney. COMPARISON: Renal ultrasound 10/26/2022 and 04/21/2022. CT abdomen and pelvis 02/05/2022. TECHNIQUE: Real-time imaging of the kidneys. FINDINGS: RIGHT KIDNEY: 10.3 x 5.3 x 5.0 cm (SAG x AP x TRV). The kidney is normal in size, contour, and echogenicity. Renal cortical thickness is normal. No focal parenchymal lesions or hydronephrosis. 5 mm upper pole calculus. 6 mm upper pole calculus. LEFT KIDNEY: 10.1 x 5.7 x 5.6 cm (SAG x AP x TRV). The kidney is normal in size, contour, and echogenicity. Renal cortical thickness is normal. No focal parenchymal lesions or hydronephrosis. 4 mm mid pole calculus. US/US renal BI IMPRESSION: Bilateral renal calculi without hydronephrosis..
== END 2023-04-09 08:01 | disposition home or self-care (01) ==
LOC: HO.US 08:00
PROVIDERS: PCP Internal Medicine; Visit Provider Urology
DX: N20.0 Calculus of kidney (principal)
CPT/HCPCS: 76775

== ENCOUNTER 2023-10-13 09:56 | Outpatient (AMB) | payer OTHER, SELFPAY ==
--- NOTE | 2023-10-13 10:33 | MHC.OFFVIS ---
Intake Intake Visit Reasons: 6m follow up/US Intake Note: Patient is Present for Follow Up Urology Medication: Vitamin B6 Antibiotic Allergies: Clindamycin, Azithromycin Blood Thinners: None Allergies clindamycin [CLINDAMYCIN] Allergy (Unknown, Verified 10/13/23 10:45) Diarrhea azithromycin Allergy (Verified 10/13/23 10:45) Diarrhea oxycodone Adverse Reaction (Verified 10/13/23 10:45) Tachycardia HPI HPI Comments History of Present Illness Details Pao is a 48-year-old female who presnts today to the office for a follow-up. 10/13/2023? She is followed today for US results. She was last seen by Hawk Skinner on 11/17/2022 for US. I have reviewed the US retroperitoneum results from 04/09/2023 revealed two stones in the right kidney measuing 5 mm and 6 mm and 4 mm stone in the left kidney. I have given her a Pamphlet on shock wave lithotripsy as well as a pamphlet on ureteroscopy. Review of charts: Last visit: 11/17/2023-- Pao is very pleasant female. She is a patient of Dr. Hobbs. She seen for the following urologic conditions - nephrolithiasis Telemedicine evaluation 15 minute consultation DoxXeko ysabel Video attempted Imaging shows multiple bilateral 5 mm stones Stress need to increase fluid for hyper hydration She states urinary drinks about 24 oz per day Encouraged her to increase to 64 Continue hydration and interval surveillance Nephrolithiasis Longstanding Multiple prior interventions Imaging - 02/10 left 5 mm UPJ stone with mild hydronephrosis and 2 5 mm stones of in kidney - 05/13 renal ultrasound with small stone bilateral, stone clear from UPJ - 11/12 renal ultrasounds multiple small stones bilateral Intervention - 03/13 left ESWL Stone analysis - mixed calcium oxalate 50% Therapeutic plan - surveillance imaging 10/13/2023: Evaluation today?UA? leukocytes: negative; blood: trace. 10/13/2023: Plan: CT stone protocol was ordered urgently with a Tele-health follow-up to discuss the results. [facility] Medical History Arthritis of left knee Asthma Migraines Psoriasis Renal calculi Seizure in childhood Surgical History History of appendectomy History of cystoscopy History of hysterectomy Social History Are you a primary critical care rn to a significant other at home: No Do you presently have visiting nurse or other home services: No Alcohol intake: never Patient Tobacco Use Status: Never used Tobacco Review of Systems Const All systems reviewed & are unremarkable except as noted in HPI and below Reports no additional complaints Resp Reports no additional complaints GI Reports no additional complaints Reports as per HPI Musc Reports no additional complaints Physical Exam Telemedicine evaluation Appropriate responses Regular breathing rate and rhythm HEENT Head: Yes normal to inspection Ears: hearing grossly normal bilaterally Eyes General: appearance normal, both eyes and all related structures Neck Neck: Yes normal visual inspection Chest Chest palpation & inspection: normal inspection of the chest Resp Effort & Inspection: normal respiratory effort and able to speak in complete sentences Results AMB Urinalysis, Automated UA Leukoctes 0 Jordan/uL Last Edit by Emilee Go [facility] on 10/13/23 10:52 UA Nitrite Negative Last Edit by Emilee Go [facility] on 10/13/23 10:52 UA Urobilinogen 0.2 mg/dL Last Edit by Emilee Go [facility] on 10/13/23 10:52 UA Protein 0 mg/dL Last Edit by Emilee Go [facility] on 10/13/23 10:52 UA pH 5.5 Last Edit by Emilee Go [facility] on 10/13/23 10:52 UA Blood 10 Paulo/uL Last Edit by Emilee Go [facility] on 10/13/23 10:52 UA Specific [place] 1.020 Last Edit by Emilee Go [facility] on 10/13/23 10:52 UA Ketone Negative Last Edit by Emilee Go [facility] on 10/13/23 10:52 UA Bilirubin 0 mg/dL Last Edit by Emilee Go [facility] on 10/13/23 10:52 UA Glucose 0 mg/dL Last Edit by Emilee Go [facility] on 10/13/23 10:52 Results Reviewed Results Reviewed: Laboratory Last Values Urine pH (Auto) 5.5 10/13/23 10:51 Specific [place] (Auto) 1.020 10/13/23 10:51 Urine Protein (Auto) 0 mg/dL 10/13/23 10:51 Glucose (UA)(Auto) 0 mg/dL 10/13/23 10:51 Urine Ketones (Auto) Negative 10/13/23 10:51 Urine Blood (Auto) 10 Paulo/uL 10/13/23 10:51 Urine Nitrite (Auto) Negative 10/13/23 10:51 Urine Bilirubin (Auto) 0 mg/dL 10/13/23 10:51 Urine Urobilinogen (Auto) 0.2 mg/dL 10/13/23 10:51 Leukocyte Esterase (Auto) 0 Jordan/uL 10/13/23 10:51 Date of Service: 04/09/23 EXAMINATION:? US RETROPERITONEAL LIMITED (RENAL ONLY) CLINICAL INFORMATION: Calculus of kidney. COMPARISON:? Renal ultrasound 10/26/2022 and 04/21/2022. CT abdomen and pelvis 02/05/2022. FINDINGS: RIGHT KIDNEY: 10.3 x 5.3 x 5.0 cm (SAG x AP x TRV). The kidney is normal in size, contour, and echogenicity. Renal cortical thickness is normal. No focal parenchymal lesions or hydronephrosis. 5 mm upper pole calculus. 6 mm upper pole calculus. LEFT KIDNEY: 10.1 x 5.7 x 5.6 cm (SAG x AP x TRV). The kidney is normal in size, contour, and echogenicity. Renal cortical thickness is normal. No focal parenchymal lesions or hydronephrosis. 4 mm mid pole calculus. IMPRESSION:? Bilateral renal calculi without hydronephrosis. Assessment & Plan Assessment & Plan (1) Renal calculi: Comment: mixed calcium oxalate Code(s): N20.0 - Calculus of kidney Plan CT stone protocol was ordered urgently with a Tele-health follow-up to discuss the results. Orders: Orders AMB Urinalysis Automated 10/13/23 Z13.9 - Encounter for screening, unspecified CT abdomen pelvis wo IV con 10/13/23 N20.0 - Calculus of kidney, R10.9 - Unspecified abdominal pain Coding Level of Care Code Est Pt Level 4 (59046) Diagnoses Renal calculi N20.0
== END 2023-10-13 11:30 | disposition home or self-care (01) ==
PROVIDERS: PCP Internal Medicine; Visit Provider Urology
DX: N20.0 Calculus of kidney (principal)
CPT/HCPCS: 99214

== ENCOUNTER → 2023-10-13 09:56 | Outpatient (BNVA) | payer OTHER, SELFPAY | PROVIDERS: PCP Internal Medicine; Visit Provider Urology | DX: N20.0 Calculus of kidney (principal) | CPT/HCPCS: 81003 ==

== ENCOUNTER 2023-11-05 16:18 | Emergency (ER) | payer OTHER, SELFPAY ==
--- NOTE | ~2023-11-05 | CT_ITS ---
EXAMINATION: CT ABDOMEN AND PELVIS WITHOUT CONTRAST CLINICAL INFORMATION: Flank pain. Concern for renal calculi. COMPARISON: None available. TECHNIQUE: Multidetector volumetric imaging was performed from the superior aspect of the liver through the pubic symphysis. Sagittal and coronal reformatted images were obtained on the technologist's workstation. This CT examination was performed using dose optimization techniques as appropriate, variously including the following: *Automated exposure control *Adjustment of mA and/or kV according to patient size (this includes techniques or standardized protocols for targeted exams where dose is matched to indication/reason for exam; i.e. extremities or head) *Use of iterative reconstruction technique DLP: 478 mGy-cm FINDINGS: LUNG BASES: The visualized lung bases are unremarkable. LIVER, GALLBLADDER, AND BILIARY TREE: The liver is normal in size, shape, and attenuation. No focal hepatic lesion or biliary ductal dilatation is present. The gallbladder is unremarkable with no evidence of radiopaque gallstones, gallbladder wall thickening, or obvious pericholecystic inflammatory changes. PANCREAS: Unremarkable. SPLEEN: Unremarkable. ADRENAL GLANDS: Unremarkable. KIDNEYS AND URETERS: The kidneys are normal in size, shape, and attenuation. There are multiple scattered left renal calculi measuring up to 3 mm mid pole left kidney. There is no hydronephrosis. BLADDER: Unremarkable. GASTROINTESTINAL TRACT: The small and large bowel are unremarkable. The appendix is not seen as a separate structure. There is a small hiatal hernia. ABDOMINAL WALL: No significant hernia is appreciated. LYMPH NODES: Normal. VASCULAR: There is mild atherosclerotic plaque of the abdominal aorta. PELVIC VISCERA: There is a 3.1 cm low-density structure within the left adnexa with low to intermediate Hounsfield values up to 15.. OSSEOUS STRUCTURES: Unremarkable. CT/CT abdomen pelvis wo IV con IMPRESSION: Nonobstructing left renal calculi. Small hiatal hernia. 3.1 cm low-density structure within the left adnexa likely a cyst. No acute intra-abdominal process identified. Fleischner guidelines were followed.
[2023-11-05 16:35] VITALS: BP 112/66; PULSE 97; RESP 20; TEMP 36.6; O2SAT 100; BMI 30.7
--- NOTE | 2023-11-05 16:36 | ED.GENADULT ---
HPI - General Adult General Chief complaint: Back Pain/Injury Stated complaint: back pain, kidney stones Time Seen by Provider: 11/05/23 17:37 Source: patient Mode of arrival: ambulatory Limitations: no limitations History of Present Illness HPI narrative: Patient with history kidney stones status post lithotripsy last episode was last year been complaining of pain in the right flank area for last 4 weeks increased on deep inspiration pain radiates to the large right lower abdomen sharp in nature , had slight blood when tested at her PCP office also has nausea pain got worse today Related Data Home Medications Medication Instructions Recorded Confirmed hydroxyzine HCl 25 mg tablet 25 mg PO BID 02/17/22 11/17/22 Cosentyx Q4W 03/03/22 11/17/22 albuterol sulfate 90 mcg/actuation 1 - 2 puff inhalation Q4-6H PRN 03/03/22 11/17/22 aerosol inhaler cough fluticasone furoate 100 1 puff inhalation DAILY 03/03/22 11/17/22 mcg-vilanterol 25 mcg/dose inhalation powder (Breo Ellipta) Previous Rx's Medication Instructions Recorded allopurinol 100 mg tablet 100 mg PO DAILY 90 days #90 tabs 11/17/22 pyridoxine (vitamin B6) 50 mg 50 mg PO DAILY #90 caps 11/17/22 capsule amoxicillin 875 mg tablet 875 mg PO BID #20 tabs 04/01/23 benzonatate 200 mg capsule 200 mg PO TID PRN cough #20 caps 04/01/23 fexofenadine 180 mg tablet 180 mg PO DAILY #20 tabs 04/01/23 (Monik Allergy) fluticasone furoate 200 1 inh inhalation DAILY #60 ea 04/01/23 mcg-vilanterol 25 mcg/dose inhalation powder (Breo Ellipta) fluticasone propionate 50 2 spray intranasal DAILY #16 grams 04/01/23 mcg/actuation nasal spray,suspension (Flonase Allergy Relief) cyclobenzaprine 10 mg tablet 10 mg PO Q8H #20 tabs 11/05/23 Allergies Allergy/AdvReac Type Severity Reaction Status Date / Time clindamycin [CLINDAMYCIN] Allergy Unknown Diarrhea Verified 10/13/23 10:45 azithromycin Allergy Diarrhea Verified 10/13/23 10:45 oxycodone AdvReac Tachycardia Verified 10/13/23 10:45 Review of Systems Review of Systems: Yes all other systems are reviewed and are negative [facility] Past Medical History Medical History Arthritis of left knee Migraines Seizure in childhood Renal calculi Psoriasis Asthma Surgical History History of cystoscopy History of appendectomy History of hysterectomy Social History Social History Are you a primary resident care aid to a significant other at home: No Do you presently have visiting nurse or other home services: No Alcohol intake: former Patient Tobacco Use Status: Never used Tobacco Smoked in Last 30 Days: No Use of substances other than those prescribed or required for medical reasons: No Advance Directives: No Advance Directives Information Provided: No Patient : No Physical Exam ED Vital Signs: Vital Signs - 24 hr 11/05/23 16:35 11/05/23 20:03 11/05/23 20:48 Temperature 97.8 F 98.9 F Pulse Rate 97 86 Respiratory Rate 20 16 16 Blood Pressure 112/66 105/51 L Pulse Oximetry 100 98 Oxygen Delivery Method Room Air Room Air BMI result Body Mass Index 30.7 Appearance: Alert. Oriented X3. No acute distress. Eyes: No pallor ENT: Pharynx normal. Oral Mucosa moist Neck: Normal inspection. Neck supple. CVS: Normal heart rate and rhythm. Pulses normal. Respiratory: No respiratory distress. Equal air entry bilateral, no wheezing/rales/rhonchi Abdomen: Soft and nontender. Bowel sounds are present, no mass palpable, right CVA tenderness + Skin: Skin warm and dry. Normal skin color. Normal skin turgor. Neuro: Oriented X 3. Course Course Course Narrative: RME performed by Katherin Gil PA-C. Patient is a 48 year old assigned female at presenting to the emergency department with flank pain. Labs ordered. Patient placed back in the waiting room pending room availability and results. Medications Administered Discontinued Medications Generic Name Dose Route Start Last Admin Trade Name Freq PRN Reason Stop Dose Admin Sodium Chloride 1,000 mls @ 999 mls/hr 11/05/23 18:13 11/05/23 20:47 Ns IV 11/05/23 19:13 Infused .Q1H1M ONE Infusion Ketorolac Tromethamine 30 mg 11/05/23 18:13 11/05/23 18:44 Ketorolac Tromethamine 30 Mg/Ml Vial IVPUSH 11/05/23 18:14 30 mg ONCE ONE Administration Morphine Sulfate 4 mg 11/05/23 18:13 11/05/23 20:48 Morphine Sulfate 4 Mg/Ml Cartridge IVPUSH 11/05/23 18:14 Not Given ONCE ONE Protocol Ondansetron HCl 4 mg 11/05/23 18:13 11/05/23 18:43 Ondansetron Hcl 4 Mg/2 Ml Vial IVPUSH 11/05/23 18:14 4 mg ONCE ONE Administration Medical Decision Making Medical Decision Making [facility] Narrative: Patient right flank pain CT scan shows nonobstructive stone in left kidney and small ovarian cyst on the left side negative on the right side patient pain likely musculoskeletal Differential Diagnosis Differential Diagnoses: The differential diagnosis associated with the presentation includes Renal colic/pyelonephritis/UTI Admission/Observation Consideration of admission/observation: Escalation of care including admission/observation considered Lab Data [facility] Lab Attestation statement: I reviewed the patient's lab results. 11/05/23 17:12 11/05/23 17:12 Labs: Lab Results 11/05/23 11/05/23 Range/Units 17:12 17:13 WBC 8.3 (4.8-10.8) X10*3/uL RBC 4.60 (4.20-5.50) X10*6/uL Hgb 13.3 (12.0-16.0) g/dl Hct 40.2 (37.0-47.0) % MCV 87.4 (80.0-98.0) fL MCH 28.9 (27.0-33.0) pg MCHC 33.1 (31.0-35.0) g/dl RDW 12.6 (11.0-16.0) % Plt Count 227 D (160-400) X10*3/uL MPV 9.9 (9.4-12.3) fL Immature Gran % (Auto) 0.4 (0.0-0.4) % Neut % (Auto) 84.5 H (45-73) % Lymph % (Auto) 8.7 L (20-40) % Lincoln % (Auto) 5.8 (2-11) % Eos % (Auto) 0.4 (0-4) % Baso % (Auto) 0.2 (0-2) % Lymph # (Auto) 0.7 L (1.2-4.9) X10*3/uL Lincoln # (Auto) 0.5 (0.1-1.2) X10*3/uL Eos # (Auto) 0.0 (0.0-0.4) X10*3/uL Baso # (Auto) 0.0 (0.0-0.2) X10*3/uL Abs Immat Gran (auto) 0.03 (0.00-0.03) X10*3/uL Absolute Neuts (auto) 7.0 (2.0-8.3) x10*3/uL Absolute Nucleated RBC 0.000 (0.0-0.012) X10*3/uL Nucleated RBC % (auto) 0.0 (0.0-0.2) /100WBC PT 11.2 (11.1-13.3) SEC INR 0.9 (0.9-1.1) APTT 28.1 (26.0-36.4) SEC Sodium 142 (135-145) mmol/L Potassium 3.7 (3.3-5.1) mmol/L Chloride 107 (96-108) mmol/L Carbon Dioxide 23 (22-29) mmol/L Anion Gap 16 (12-20) BUN 13 (9-16) mg/dL Creatinine 0.66 (0.5-1.4) mg/dL Estim Creat Clear Calc 97.4 Estimated GFR > 60 Random Glucose 122 H (60-115) mg/dL Calcium 9.4 (8.4-10.2) mg/dL Magnesium 2.0 (1.6-2.6) mg/dL Total Bilirubin 0.8 (0.0-1.0) mg/dL AST 20 (5-31) U/L ALT 13 (0-31) U/L Alkaline Phosphatase 76 (39-117) U/L Total Protein 7.4 (6.5-8.0) g/dL Albumin 4.2 (3.5-5.0) g/dL Urine Color Yellow Urine Appearance Cloudy Urine pH 8.0 (5.0-9.0) Ur Specific P[place] 1.025 (1.005-1.025) Urine Protein Negative (Neg-Trace) mg/dL Urine Glucose (UA) Negative (Negative) mg/dL Urine Ketones Negative (Negative) mg/dL Urine Blood Negative (Negative) Urine Nitrite Negative (Negative) Ur Leukocyte Esterase Negative (Negative) Influenza Type A (PCR) NEGATIVE (Negative) Influenza Type B (PCR) NEGATIVE (Negative) RSV RNA Qual (PCR) NEGATIVE (Negative) SARS-CoV-2 RNA (RT-PCR) NEGATIVE (Negative) Independent Interpretation I performed an independent interpretation of an: CT Scan Radiology Impression Discussion of test interpretation with radiology: I have reviewed the radiologist's reading. Discharge Plan Discharge Clinical Impression: Right flank pain Patient Disposition: Home, Self-Care Instructions: Flank Pain (ED) Additional Instructions: Likely you have musculoskeletal flank pain Could to take your tramadol Flexeril for muscle relaxation Prescriptions: New cyclobenzaprine 10 mg tablet 10 mg PO Q8H Qty: 20 0RF No Action albuterol sulfate 90 mcg/actuation HFA aerosol inhaler 1 - 2 puff inhalation Q4-6H PRN (Reason: cough) Breo Ellipta 100-25 mcg/dose blister with device 1 puff inhalation DAILY Cosentyx Q4W fluticasone propionate [Flonase Allergy Relief] 50 mcg/actuation spray,suspension 2 spray intranasal DAILY Qty: 16 0RF Rx Instructions: administer into each nostril amoxicillin 875 mg tablet 875 mg PO BID Qty: 20 0RF benzonatate 200 mg capsule 200 mg PO TID PRN (Reason: cough) Qty: 20 0RF fluticasone furoate-vilanterol [Breo Ellipta] 200-25 mcg/dose blister with device 1 inh inhalation DAILY Qty: 60 0RF fexofenadine [Monik Allergy] 180 mg tablet 180 mg PO DAILY Qty: 20 0RF hydroxyzine HCl 25 mg tablet 25 mg PO BID pyridoxine (vitamin B6) 50 mg capsule 50 mg PO DAILY Qty: 90 1RF allopurinol 100 mg tablet 100 mg PO DAILY 90 Days Qty: 90 1RF Interventions: ED Discharge Assessment Last Done: 11/05/23 20:56 Discharge Date/Time: 11/05/23 20:57
[2023-11-05 17:18] LABS: MANUAL DIFF FLAG NO
[2023-11-05 17:20] LABS: Basophils Percent Auto 0.2 % (0-2); Eosinophils Percent Auto 0.4 % (0-4); Hematocrit 40.2 % (37.0-47.0); Hemoglobin 13.3 g/dl (12.0-16.0); Imm Gran Abs Auto 0.03 X10*3/uL (0.00-0.03); Imm Gran Pct Auto 0.4 % (0.0-0.4); Lymphocytes Absolute Auto 0.7 X10*3/uL (1.2-4.9); Lymphocytes Percent Auto 8.7 % (20-40); Mean Corpuscular HGB Conc 33.1 g/dl (31.0-35.0); Mean Corpuscular Hemoglobin 28.9 pg (27.0-33.0); Mean Corpuscular Volume 87.4 fL (80.0-98.0); Mean Platelet Volume 9.9 fL (9.4-12.3); Monocytes Absolute Auto 0.5 X10*3/uL (0.1-1.2); Monocytes Percent Auto 5.8 % (2-11); Neutrophils Percent Auto 84.5 % (45-73); Platelet Count 227 X10*3/uL (160-400); Red Cell Distribution Width 12.6 % (11.0-16.0); White Blood Count 8.3 X10*3/uL (4.8-10.8)
[2023-11-05 17:22] LABS: Appearance Urine Cloudy; Color Urine Yellow; Glucose Urine UA Negative (Negative); Leukocyte Esterase Urine Negative (Negative); Nitrite Urine Negative (Negative); Specific Gravity - Urine 1.025 (1.005-1.025); Urine Blood Negative (Negative); Urine Ketones Negative (Negative); Urine Protein Negative (Neg-Trace)
[2023-11-05 17:31] LABS: INTERNATIONAL NORM RATIO 0.9 (0.9-1.1); Prothrombin Time 11.2 SEC (11.1-13.3)
[2023-11-05 17:34] LABS: Partial Thromboplastin Time 28.1 SEC (26.0-36.4)
[2023-11-05 17:35] LABS: Alanine Aminotransferase 13 U/L (0-31); Albumin Level 4.2 g/dL (3.5-5.0); Alkaline Phosphatase 76 U/L (39-117); Anion Gap 16 (12-20); Aspartate Amino Transferase 20 U/L (5-31); Bilirubin Total 0.8 mg/dL (0.0-1.0); Blood Urea Nitrogen 13 mg/dL (9-16); Calcium 9.4 mg/dL (8.4-10.2); Carbon Dioxide 23 mmol/L (22-29); Chloride 107 mmol/L (96-108); Creatinine Clr Calc Pharmacy 97.4; Estimated Glomerular Filt Rate > 60; Glucose Random 122 mg/dL (60-115); Potassium 3.7 mmol/L (3.3-5.1); Sodium 142 mmol/L (135-145); Total Protein 7.4 g/dL (6.5-8.0)
[2023-11-05 17:56] LABS: Influenza A PCR NEGATIVE (Negative); Influenza B PCR NEGATIVE (Negative); Resp Syncy Virus RNA Qual PCR NEGATIVE (Negative); SARS COV2 PCR INHOUSE NEGATIVE (Negative)
[2023-11-05] MEDS: 0.9 % Sodium Chloride 1,000 ML 999 ML IV (18:43)
[2023-11-05] MEDS: ondansetron HCL 4 MG/2 ML VIAL IVPUSH (18:43)
[2023-11-05] MEDS: Ketorolac Tromethamine 30 MG/ML VIAL IVPUSH (18:44)
--- NOTE | 2023-11-05 18:49 | PC.NURSE ---
pt refused morphine at this time, will attemt to control pain with IV Toradol at this time.
[2023-11-05 20:03] VITALS: BP 105/51; PULSE 86; RESP 16; TEMP 37.2; O2SAT 98
[2023-11-05 20:48] VITALS: RESP 16
== END 2023-11-05 20:57 | disposition home or self-care (01) ==
PROVIDERS: Physician Assistant Medical; Emergency Provider Internal Medicine; PCP Internal Medicine
DX: R10.9 Unspecified abdominal pain (principal); R11.2 Nausea with vomiting, unspecified; R10.31 Right lower quadrant pain; Z20.822 Contact with and (suspected) exposure to COVID-19; Z20.828 Contact with and (suspected) exposure to other viral communicable diseases; Z79.899 Other long term (current) drug therapy
CPT/HCPCS: 0241U; 74176; 80053; 81003; 83735; 85025; 85610; 85730; 96361; 96374; 96375; 99284; 99285; J1885; J2270; J2405

== ENCOUNTER 2023-11-19 12:29 | Outpatient (AMB) | payer OTHER, SELFPAY ==
--- NOTE | 2023-11-19 13:00 | A.OFFVIS_ITS ---
Intake Intake Visit Reasons: 3w/CT/FLANK PAIN Intake Note: Patient is Present for Follow Up Urology Medication: Vitamin B6 Antibiotic Allergies: Clindamycin, Azithromycin Blood Thinners: None Kiln Firer Required: No Accompanied by: Daughter Allergies clindamycin [CLINDAMYCIN] Allergy (Unknown, Verified 11/19/23 13:25) Diarrhea azithromycin Allergy (Verified 11/19/23 13:25) Diarrhea oxycodone Adverse Reaction (Verified 11/19/23 13:25) Tachycardia Medication List - Last Reconciled 11/19/23 by Cinthya Bolden MD albuterol sulfate 90 mcg/actuation 1 - 2 puffs inhalation Q4-6H PRN allopurinol 100 mg PO DAILY 90 days benzonatate 200 mg PO TID PRN [Cosentyx Q4W] cyclobenzaprine 10 mg PO Q8H fexofenadine (Monik Allergy) 180 mg PO DAILY fluticasone furoate-vilanterol 100-25 mcg/dose (Breo Ellipta) 1 puff inhalation DAILY fluticasone furoate-vilanterol 200-25 mcg/dose (Breo Ellipta) 1 inh inhalation DAILY fluticasone propionate 50 mcg/actuation (Flonase Allergy Relief) 2 sprays intranasal DAILY hydroxyzine HCl 25 mg PO BID pyridoxine (vitamin B6) 100 mg PO DAILY tamsulosin (Flomax) 0.4 mg PO BEDTIME HPI HPI Comments History of Present Illness Details Pao is a 48-year-old female who presnts today to the office for a fo llow-up. LV--10/13/2023? 11/19/23-- She is followed today with complaints of kidney stone pain . She was in the ED on 11/05/23 and had a CTAP wo contrast done, noting small left non obstructing kidney stones. The patient states that she has pain on her right side extending towards her bladder and she has seen blood in the urine. She showed me a picture of blood in the toilet bowl that she took after urinating at home. She states she is prescribed tramadol by her PCP for the pain. I have reviewed the films as wall as the report with the patient: I reviewed CTAP-11/05/23-- kidneys are normal in size, shape, and attenuation. multiple scattered left renal calculi measuring up to 3 mm mid pole left kidney. Review of chart: Nephrolithiasis Longstanding Multiple prior interventions Stone analysis - mixed calcium oxalate 50% Therapeutic plan - surveillance imaging 11/19/23: Evaluation today?UA? leukocyte s: negative; blood: trace. Plan: 11/19/23--tamsulosin, discussed adding lemon to water patient does not taste of lemon number water urge oranges or orange juice. Refilled allopurinol and vitamin B6 100 mg The patient having prior CT scan order which is pending for today. Although gross hematuria may be secondary to kidney stones the patient is concerned and will schedule follow-up office cystoscopy [facility] Medical History Arthritis of left knee Migraines Seizure in childhood Renal calculi Psoriasis Asthma Surgical History History of cystoscopy History of appendectomy History of hysterectomy Social History Are you a primary home care assistant to a significant other at home: No Do you presently have visiting nurse or other home services: No Alcohol intake: former Patient Tobacco Use Status: Never used Tobacco Review of Systems Const All systems reviewed & are unremarkable except as noted in HPI and below Reports no additional complaints Eyes Reports no additional complaints ENT Reports no additional complaints Card Denies dyspnea Resp Denies cough and Denies dyspnea GI Reports no additional complaints Reports no additional complaints Musc Reports no additional complaints Skin/Breast Denies rash and Denies unusual bruising Neuro Reports no additional complaints Psych Reports no additional complaints Endo Reports no additional complaints Aubrey/Lymph Reports no additional complaints Aller/Immun Reports no additional complaints Results AMB Urinalysis, Automated UA Leukoctes 0 Jordan/uL Last Edit by PETE Turner on 11/19/23 13:12 UA Nitrite Negative Last Edit by PETE Turner on 11/19/23 13:12 UA Urobilinogen 0.2 mg/dL Last Edit by Henry Seth A on 11/19/23 13:1 2 UA Protein 15 mg/dL Last Edit by Henry Rolo, A on 11/19/23 13:12 UA pH 6.0 Last Edit by Henry Seth, A on 11/19/23 13:12 UA Blood 0 Paulo/uL Last Edit by Henry Seth, A on 11/19/23 13:12 UA Specific [place] 1.030 Last Edit by Henry Rolo, A on 11/19/23 13: 12 UA Ketone Negative Last Edit by Henry Seth A on 11/19/23 13:12 UA Bilirubin 0 mg/dL Last Edit by Henry Rolo, A on 11/19/23 13:12 UA Glucose 0 mg/dL Last Edit by Henry Seth A on 11/19/23 13:12 Results Reviewed Results Reviewed: Laboratory Last Values Urine pH (Auto) 6.0 11/19/23 13:10 Specific [place] (Auto) 1.030 11/19/23 13:10 Urine Protein (Auto) 15 mg/dL 11/19/23 13:10 Glucose (UA)(Auto) 0 mg/dL 11/19/23 13:10 Urine Ketones (Auto) Negative 11/19/23 13:10 Urine Blood (Auto) 0 Paulo/uL 11/19/23 13:10 Urine Nitrite (Auto) Negative 11/19/23 13:10 Urine Bilirubin (Auto) 0 mg/dL 11/19/23 13:10 Urine Urobilinogen (Auto) 0.2 mg/dL 11/19/23 13:10 Leukocyte Esterase (Auto) 0 Jordan/uL 11/19/23 13:10 Date of Service: 11/05/23 EXAMINATION: CT ABDOMEN AND PELVIS WITHOUT CONTRAST CLINICAL INFORMATION: Flank pain. Concern for renal calculi. COMPARISON: None available. TECHNIQUE: Multidetector volumetric imaging was performed from the superior aspect of the liver through the pubic symphysis. Sagittal and coronal reformatted images were obtained on the technologist's workstation. This CT examination was performed using dose optimization techniques as appropriate, variously including the following: *Automated exposure control *Adjustment of mA and/or kV according to patient size (this includes techniques or standardized protocols for targeted exams where dose is matched to indication/reason for exam; i.e. extremities or head) *Use of iterative reconstruction technique DLP: 478 mGy-cm FINDINGS: LUNG BASES: The visualized lung bases are unremarkable. LIVER, GALLBLADDER, AND BILIARY TREE: The liver is normal in size, shape, and attenuation. No focal hepatic lesion or biliary ductal dilatation is present. The gallbladder is unremarkable with no evidence of radiopaque gallstones, gallbladder wall thickening, or obvious pericholecystic inflammatory changes. PANCREAS: Unremarkable. SPLEEN: Unremarkable. ADRENAL GLANDS: Unremarkable. KIDNEYS AND URETERS: The kidneys are normal in size, shape, and attenuation. There are multiple scattered left renal calculi measuring up to 3 mm mid pole left kidney. There is no hydronephrosis. BLADDER: Unremarkable. GASTROINTESTINAL TRACT: The small and large bowel are unremarkable. The appendix is not seen as a separate structure. There is a small hiatal hernia. ABDOMINAL WALL: No significant hernia is appreciated. LYMPH NODES: Normal. VASCULAR: There is mild atherosclerotic plaque of the abdominal aorta. PELVIC VISCERA: There is a 3.1 cm low-density structure within the left adnexa with low to intermediate Hounsfield values up to 15.. OSSEOUS STRUCTURES: Unremarkable. IMPRESSION: Nonobstructing left renal calculi. Small hiatal hernia. 3.1 cm low-density structure within the left adnexa likely a cyst. No acute intra-abdominal process identified. Assessment & Plan Assessment & Plan (1) Renal calculi: Comment: mixed calcium oxalate Code(s): N20.0 - Calculus of kidney (2) Gross hematuria: Code(s): R31.0 - Gross hematuria (3) Right flank pain: Code(s): R10.9 - Unspecified abdominal pain Plan Tamsulosin, discussed adding lemon to water patient does not taste of lemon number water urge oranges or orange juice. Refilled allopurinol and vitamin B6 100 mg The patient having prior CT scan order which is pending for today. Although gross hematuria may be secondary to kidney stones the patient is concerned and will schedule follow-up office cystoscopy Orders: Orders AMB Urinalysis Automated Today Z13.9 - Encounter for screening, unspecified Medications: New tamsulosin (Flomax) 0.4 mg PO BEDTIME 30 caps 1RF to help pass stones pyridoxine (vitamin B6) 100 mg PO DAILY 90 tabs 3RF Refilled allopurinol 100 mg PO DAILY 90 days 90 tabs 3RF N20.0 - Calculus of kidney Patient Instructions: The patient had an opportunity to ask questions regarding treatment plan. All questions were answered. Imaging, Laboratory studies and physical exam results were discussed and reviewed in detail. No major barriers to understanding were identified. The patient expressed understanding and agreement with the above treatment plan. The patient is aware they should contact our office by phone for worsening of their current condition or the appearance of new symptoms. Compliance is encouraged with any medications and followup testing that is ordered. It is a privilege to be allowed the opportunity to participate in the urologic care of your patient. If you have any questions or concerns regarding treatment for the above conditions please do not hesitate to contact me. The office telephone contact is [phone]. This note is constructed in part using voice recognition software. While every effort has been made to ensure accuracy compliance aide errors may have been included. Yours sincerely, Cinthya Bolden MD Coding Level of Care Code Est Pt Level 4 (07467) Diagnoses Renal calculi N20.0 Gross hematuria R31.0 Right flank pain R10.9
== END 2023-11-19 13:42 | disposition home or self-care (01) ==
PROVIDERS: PCP Internal Medicine; Visit Provider Urology
DX: N20.0 Calculus of kidney (principal); R31.0 Gross hematuria; R10.9 Unspecified abdominal pain; Z13.9 Encounter for screening, unspecified
CPT/HCPCS: 99214

== ENCOUNTER 2023-11-19 13:46 | Outpatient (REF) | payer OTHER, SELFPAY ==
--- NOTE | ~2023-11-19 | CT_ITS ---
EXAMINATION: CT ABDOMEN AND PELVIS WITHOUT CONTRAST CLINICAL INFORMATION: Right flank pain, calculus of kidney COMPARISON: 11/05/2023/17/22. TECHNIQUE: Multidetector volumetric imaging was performed from the superior aspect of the liver through the pubic symphysis. Sagittal and coronal reformatted images were obtained on the technologist's workstation. This CT examination was performed using dose optimization techniques as appropriate, variously including the following: *Automated exposure control *Adjustment of mA and/or kV according to patient size (this includes techniques or standardized protocols for targeted exams where dose is matched to indication/reason for exam; i.e. extremities or head) *Use of iterative reconstruction technique DLP: 417 mGy-cm FINDINGS: BAG WORKER: Nonobstructive bowel pattern. No abnormal calcifications. Right femoral sclerotic density, likely bone island. LUNG BASES: The visualized lung bases are unremarkable. Small hiatal hernia. Nonenlarged heart. No pericardial effusion. LIVER, GALLBLADDER, AND BILIARY TREE: The liver is normal in size, shape, and attenuation. No focal hepatic lesion or biliary ductal dilatation is present. The gallbladder is unremarkable with no evidence of radiopaque gallstones, gallbladder wall thickening, or obvious pericholecystic inflammatory changes. PANCREAS: Unremarkable. SPLEEN: Unremarkable. ADRENAL GLANDS: Unremarkable. KIDNEYS AND URETERS: The kidneys are normal in size, shape, and attenuation. No hydronephrosis or hydroureter. Punctate right upper pole nonobstructing renal calculus. 4 mm left upper pole and 3 and 4 mm left mid pole nonobstructing renal calculi. No perinephric stranding. BLADDER: Under distended. Redemonstration anterior superior bladder wall fatty deposition. GASTROINTESTINAL TRACT: Small hiatal hernia. Moderately distended stomach. Soft tissue density at GE junction also seen in 2021 exam but not reproduced on 11/05/2023 examination when the stomach was well distended. Nonobstructive bowel pattern. Appendix not seen. No right lower, quadrant inflammatory changes. Diverticulosis without diverticulitis. Mild fecal retention. ABDOMINAL WALL: Small fat filled right inguinal hernia. LYMPH NODES: Normal. VASCULAR: Atherosclerotic calcifications nonaneurysmal aorta. Unremarkable inferior vena cava. PELVIC VISCERA: No pelvic pathology recognized. 3.1 cm low density left adnexal structure on recent CT no longer seen, likely resolved ovarian cyst. OSSEOUS STRUCTURES: Right humeral and pelvic sclerotic densities, CT/CT abdomen pelvis wo IV con IMPRESSION: Nonobstructing bilateral renal calculi. No hydroureteronephrosis. No acute intra-abdominal or pelvic pathology. Fleischner guidelines were followed.
== END 2023-11-19 13:47 | disposition home or self-care (01) ==
LOC: HO.CT 13:46
PROVIDERS: PCP Internal Medicine; Visit Provider Urology
DX: N20.0 Calculus of kidney (principal); R10.9 Unspecified abdominal pain
CPT/HCPCS: 74176; 81003

== ENCOUNTER 2023-12-24 13:11 | Outpatient (AMB) | payer OTHER, SELFPAY ==
--- NOTE | 2023-12-24 13:20 | A.OFFVIS_ITS ---
Intake Intake Visit Reasons: cysto Intake Note: Patient presents today for a CYSTOSCOPY Procedure: Urology Medication: Vitamin B6 Antibiotic Allergies: Clindamycin, Azithromycin Urinalysis test clear for Cysto? YES Disposable Uro-G Cystoscope Cannula: Lot: [id number] Exp: 04/04/2025 Punch Press Feeder Required: No Accompanied by: Self / Same As Patient Allergies clindamycin [CLINDAMYCIN] Allergy (Unknown, Verified 12/24/23 13:21) Diarrhea azithromycin Allergy (Verified 12/24/23 13:21) Diarrhea oxycodone Adverse Reaction (Verified 12/24/23 13:21) Tachycardia HPI HPI Comments History of Present Illness Details 12/24/23--Pao is a 48-year-old female w presnts today to the office for cystoscopy. The patient has complained of intermittent episodes of gross hematuria. Although gross hematuria may be secondary to kidney stones the patient is concerned. 12/24/23--Office cystoscopy findings - no suspicious bladder lesions Review of chart: Nephrolithiasis Longstanding Multiple prior interventions Stone analysis - mixed calcium oxalate 50% Therapeutic plan - surveillance imaging CTAP-11/05/23-- kidneys are normal in size, shape, multiple scattered left renal calculi measuring up to 3 mm mid pole left kidney. Plan: 12/24/23--office cystoscopy-- within normal limits. Continue to monitor kidney stones Allopurinol and vitamin B6 100 mg PFS Medical History Arthritis of left knee Migraines Seizure in childhood Renal calculi Psoriasis Asthma Surgical History History of cystoscopy History of appendectomy History of hysterectomy Social History Are you a primary director critical care to a significant other at home: No Do you presently have visiting nurse or other home services: No Alcohol intake: former Patient Tobacco Use Status: Never used Tobacco Review of Systems Const All systems reviewed & are unremarkable except as noted in HPI and below Reports no additional complaints Eyes Reports no additional complaints ENT Reports no additional complaints Card Denies dyspnea Resp Denies cough and Denies dyspnea GI Reports no additional complaints Reports no additional complaints Musc Reports no additional complaints Skin/Breast Denies rash and Denies unusual bruising Neuro Reports no additional complaints Psych Reports no additional complaints Endo Reports no additional complaints Aubrey/Lymph Reports no additional complaints Aller/Immun Reports no additional complaints Office Procedures Cystoscopy Consent Discussed risk and benefit or proposed procedure with the patient. Information consent for procedure given to the patient. Discussed technical aspects, risks, benefits and alternatives in full. Addressed all of the patient's questions and concerns regarding the procedure. The patient demonstrated knowledge and understanding. They wish to proceed with this procedure. Preparation The patient was prepped in the usual manner. A legal manager was present and in the room. Genitalia was prepped with betadine solution in a sterile manner. Lidocaine Jelly 2% was placed into the urethra and 16Fr flexible Olympus cystoscope was inserted into the meatus after adequate lubrication. Procedure Time out per protocol performed. Bladder Inspection Bladder Inspection: The bladder was inspected in its entirety with utilization retroflexion displaying: Tumor(s): none visualized Trabeculation: N/A Mucosal Erthema: N/A Orifices: normal shape and position Urethra: normal Cystoscopy findings: WNL, no suspicious bladder lesions visualized [id number] DISPOSABLE SCOPE URO-G FLEXIBLE SCOPE Procedure code (CPT) selection complete Office Meds lidocaine HCl 2 % mucosal jelly in applicator Performing Provider: Cinthya Bolden MD Performing Location: [facility] [place] [facility] Administered by: Ethan Petersen LPN on 12/24/23 13:57 Dose Route Admin Location Dispensed Lot Number Expiration Date [facility] Health Insurance Sales Agent 10 mL intra-urethral 20 mL naproxen 500 mg tablet Performing Provider: Cinthya Bolden MD Performing Location: [facility] [place] [facility] Administered by: Ethan Petersen LPN on 12/24/23 13:57 Dose Route Admin Location Dispensed Lot Number Expiration Date [facility] Health Insurance Sales Agent 500 mg PO 1 tab ciprofloxacin HCl 500 mg tablet Performing Provider: Cinthya Bolden MD Performing [facility] [place] [facility] Administered by: Ethan Petersen LPN on 12/24/23 13:57 Dose Route Admin Location Dispensed Lot Number Expiration Date [facility] Health Insurance Sales Agent 500 mg PO 1 tab Results AMB Urinalysis, Automated UA Leukoctes 0 Jordan/uL Last Edit by PETE Turner on 12/24/23 13:54 UA Nitrite Negative Last Edit by PETE Turner on 12/24/23 13:54 UA Urobilinogen 0.2 mg/dL Last Edit by PETE Turner on 12/24/23 13:5 4 UA Protein 0 mg/dL Last Edit by PETE Turner on 12/24/23 13:54 UA pH 6.0 Last Edit by Henry Seth Edgar on 12/24/23 13:54 UA Blood 0 Paulo/uL Last Edit by PETE Turner on 12/24/23 13:54 UA Specific [place] 1.030 Last Edit by PETE Turner on 12/24/23 13: 54 UA Ketone Negative Last Edit by Henry Seth Edgar on 12/24/23 13:54 UA Bilirubin 0 mg/dL Last Edit by PETE Turner on 12/24/23 13:54 UA Glucose 0 mg/dL Last Edit by PETE Turner on 12/24/23 13:54 Results Reviewed Results Reviewed: Laboratory Last Values Urine pH (Auto) 6.0 12/24/23 13:22 Specific [place] (Auto) 1.030 12/24/23 13:22 Urine Protein (Auto) 0 mg/dL 12/24/23 13:22 Glucose (UA)(Auto) 0 mg/dL 12/24/23 13:22 Urine Ketones (Auto) Negative 12/24/23 13:22 Urine Blood (Auto) 0 Paulo/uL 12/24/23 13:22 Urine Nitrite (Auto) Negative 12/24/23 13:22 Urine Bilirubin (Auto) 0 mg/dL 12/24/23 13:22 Urine Urobilinogen (Auto) 0.2 mg/dL 12/24/23 13:22 Leukocyte Esterase (Auto) 0 Jordan/uL 12/24/23 13:22 Assessment & Plan Assessment & Plan (1) Renal calculi: Comment: mixed calcium oxalate Code(s): N20.0 - Calculus of kidney (2) Gross hematuria: Code(s): R31.0 - Gross hematuria Plan Tamsulosin, prn Cont allopurinol and vitamin B6 100 mg Monitor kidney stones Orders: Orders AMB Urinalysis Automated 12/24/23 Z13.9 - Encounter for screening, unspecified AMB Cystoscopy 12/24/23 N20.0 - Calculus of kidney, R10.9 - Unspecified abdominal pain, R31.0 - Gross hematuria Patient Instructions: The patient had an opportunity to ask questions regarding treatment plan. All questions were answered. Imaging, Laboratory studies and physical exam results were discussed and reviewed in detail. No major barriers to understanding were identified. The patient expressed understanding and agreement with the above treatment plan. The patient is aware they should contact our office by phone for worsening of their current condition or the appearance of new symptoms. Compliance is encouraged with any medications and followup testing that is ordered. It is a privilege to be allowed the opportunity to participate in the urologic care of your patient. If you have any questions or concerns regarding treatment for the above conditions please do not hesitate to contact me. The office telephone contact is [phone]. This note is constructed in part using voice recognition software. While every effort has been made to ensure accuracy emergency medicine physician assistant errors may have been included. Yours sincerely, Cinthya Bolden MD Coding Level of Care Code Procedure Only Diagnoses Renal calculi N20.0 Gross hematuria R31.0 CPT Codes Cystoscopy - CPT: [id number] ([id number])
== END 2023-12-24 14:43 | disposition home or self-care (01) ==
PROVIDERS: PCP Internal Medicine; Visit Provider Urology
DX: R31.0 Gross hematuria (principal); R10.9 Unspecified abdominal pain; N20.0 Calculus of kidney; Z13.9 Encounter for screening, unspecified
CPT/HCPCS: 52000

== ENCOUNTER → 2023-12-24 13:11 | Outpatient (BNVA) | payer OTHER, SELFPAY | PROVIDERS: PCP Internal Medicine; Visit Provider Urology | DX: N20.0 Calculus of kidney (principal); R31.0 Gross hematuria | CPT/HCPCS: 52000; 81003 ==

== ENCOUNTER 2024-06-23 09:05 | Outpatient (AMB) | payer OTHER, SELFPAY ==
--- NOTE | 2024-06-23 09:05 | A.OFFVIS_ITS ---
Intake Visit Reasons: 6m follow up Intake Note: Pao is a 49 year old female who presents to the office as a telehealth visit for a 6 month follow up. Blood thinners: None Urology Meds: Tamsulosin Cookie Padder Required: No Accompanied by: Self / Same As Patient Allergies clindamycin [CLINDAMYCIN] Allergy (Unknown, Verified 06/23/24 09:05) Diarrhea azithromycin Allergy (Verified 06/23/24 09:05) Diarrhea oxycodone Adverse Reaction (Verified 06/23/24 09:05) Tachycardia HPI Comments Details: 06/23/24-- FU kidney stones, hematuria, pt states she has been doing well, denies recurrent gross hematuria, has had intermittent back pain not too bothersome. Plan continue to monitor kidneys--check renal US. Cont Allopurinol, Vit B6 100 mg daily. Review of chart: 12/24/23--Pao is a 48-year-old female who presnts today to the office for cystoscopy. The patient has complained of intermittent episodes of gross hematuria. Although gross hematuria may be secondary to kidney stones the patient is concerned. 12/24/23--Office cystoscopy findings - no suspicious bladder lesions h/o - Nephrolithiasis, Longstanding Multiple prior interventions Stone analysis - mixed calcium oxalate 50% Therapeutic plan - surveillance imaging CTAP-11/05/23-- kidneys are normal in size, shape, multiple scattered left renal calculi measuring up to 3 mm mid pole left kidney. [facility] Medical History Arthritis of left knee Migraines Seizure in childhood Renal calculi Psoriasis Asthma Surgical History History of cystoscopy History of appendectomy History of hysterectomy Social History Are you a primary post anesthesia care unit nurse to a significant other at home: No Do you presently have visiting nurse or other home services: No Alcohol intake: former Patient Tobacco Use Status: Never used Tobacco Telehealth Telehealth Telehealth Platform: Telephone Location of provider rendering services: practice address Location of patient: address on file Patient Identification confirmed using: Name, : Yes Telehealth method: voice only Patient verbally consented to treatment: Yes Patient verbally consented to billing insurance company: Yes Patient informed of any privacy concerns related to visit: Yes Minutes spent on Phone/Video with Pt.: 12 Assessment & Plan Assessment & Plan (1) Renal calculi: Comment: mixed calcium oxalate Code(s): N20.0 - Calculus of kidney Category: Medical (2) Hematuria: Code(s): R31.9 - Hematuria, unspecified Category: Medical Plan Plan continue to monitor kidneys--check renal US. Cont Allopurinol, Vit B6 100 mg daily. Orders: Orders US renal BI 06/23/24 N20.0 - Calculus of kidney Patient Instructions: The patient had an opportunity to ask questions regarding treatment plan. The patient expressed understanding and agreement with the above treatment plan. The patient is aware they should contact our office by phone for worsening of their current condition or the appearance of new symptoms. Compliance is encouraged with any medications and followup testing that is ordered. It is a privilege to be allowed the opportunity to participate in the urologic care of your patient. If you have any questions or concerns regarding treatment for the above conditions please do not hesitate to contact me. The office telephone contact is [phone]. This note is constructed in part using voice recognition software. While every effort has been made to ensure accuracy cd reactor operator errors may have been included. Yours sincerely, Cinthya Bolden MD Coding Level of Care Code Tele Est Pt Level 3 (63511) Diagnoses Renal calculi N20.0 Hematuria R31.9
== END 2024-06-23 13:11 | disposition home or self-care (01) ==
LOC: HO.HUSH 09:05
PROVIDERS: PCP Internal Medicine; Visit Provider Urology
DX: N20.0 Calculus of kidney (principal); R31.9 Hematuria, unspecified
CPT/HCPCS: 99213

== ENCOUNTER → 2024-06-23 09:05 | Outpatient (BNVA) | payer OTHER, SELFPAY | PROVIDERS: PCP Internal Medicine; Visit Provider Urology ==

== ENCOUNTER 2024-07-13 16:02 | Outpatient (REF) | payer OTHER, SELFPAY ==
--- NOTE | ~2024-07-13 | US_ITS ---
EXAMINATION: US RETROPERITONEAL COMPLETE (RENAL) CLINICAL INFORMATION: Renal calculus. COMPARISON: None available. TECHNIQUE: Real-time imaging of the kidneys and bladder. FINDINGS: RIGHT KIDNEY: 10.8 x 4.7 x 5.0 cm (SAG x AP x TRV). The kidney is normal in size and contour. There are echogenic medullary pyramids. Renal cortical thickness is normal. No calculi or focal parenchymal lesions. No hydronephrosis. LEFT KIDNEY: 10.8 x 5.0 x 4.7 cm (SAG x AP x TRV). The kidney is normal in size and contour. There are echogenic medullary pyramids. Renal cortical thickness is normal. No focal parenchymal lesions. At the interpolar aspect, a 3 mm obstructing calculus is seen. At the lower pole, a 5 mm nonobstructing calculus is seen. No hydronephrosis. US/US renal BI IMPRESSION: 1. There are nonobstructing left renal calculi, as detailed. 2. 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 Electronically signed by: Scooter Jones MD 07/13/2024 06:13 PM EDT Workstation: [id number]
== END 2024-07-13 16:03 | disposition home or self-care (01) ==
LOC: HO.US 16:02
PROVIDERS: PCP Internal Medicine; Visit Provider Urology
DX: N20.0 Calculus of kidney (principal)
CPT/HCPCS: 76775

== ENCOUNTER 2024-09-22 16:06 | Outpatient (REF) | payer OTHER, SELFPAY ==
[2024-09-22 17:23] LABS: Appearance Urine Clear; Color Urine Yellow; Glucose Urine UA Negative (Negative); Leukocyte Esterase Urine Negative (Negative); Nitrite Urine Negative (Negative); PH 5.5 (5.0-9.0); Specific Gravity - Urine 1.025 (1.005-1.025); Urine Blood Negative (Negative); Urine Ketones Negative (Negative); Urine Protein Negative (Neg-Trace)
[2024-09-22 17:44] LABS: Bacteria Urine 1+ (None Seen); Hyaline Casts Urine 0-2 /LPF (0-2); RBC Urine 0-2 /HPF (0-2)
== END 2024-09-22 16:07 | disposition home or self-care (01) ==
LOC: HO.LAB 16:06
PROVIDERS: PCP Internal Medicine; Visit Provider Urology
DX: N20.0 Calculus of kidney (principal); R10.9 Unspecified abdominal pain; R31.9 Hematuria, unspecified; R31.0 Gross hematuria
CPT/HCPCS: 81001; 87086

== ENCOUNTER 2024-09-28 07:33 | Emergency (ER) | payer OTHER, SELFPAY ==
--- NOTE | ~2024-09-28 | CT_ITS ---
EXAMINATION: CT ABDOMEN AND PELVIS WITHOUT AND WITH CONTRAST CLINICAL INFORMATION: lower abdominal pain brbpr COMPARISON: CT abdomen/pelvis 11/19/2023 TECHNIQUE: Multidetector volumetric imaging was performed of the abdomen and pelvis before and after the IV administration of 80 mL of Omnipaque 350 intravenous contrast. Sagittal and coronal reformatted images were obtained on the technologist's workstation. This CT examination was performed using dose optimization techniques as appropriate, variously including the following: *Automated exposure control *Adjustment of mA and/or kV according to patient size (this includes techniques or standardized protocols for targeted exams where dose is matched to indication/reason for exam; i.e. extremities or head) *Use of iterative reconstruction technique DLP: 1392 mGy-cm FINDINGS: LUNG BASES: The visualized lung bases are unremarkable. LIVER, GALLBLADDER, AND BILIARY TREE: The liver is normal in size, shape, and attenuation. No focal hepatic lesion or biliary ductal dilatation is present. The gallbladder is unremarkable with no evidence of radiopaque gallstones, gallbladder wall thickening, or obvious pericholecystic inflammatory changes. PANCREAS: Unremarkable SPLEEN: Unremarkable ADRENAL GLANDS: Unremarkable KIDNEYS AND URETERS: Nonobstructing 0.1 to 0.3 cm calculi in the left renal lower and interpole. Punctate 0.1 cm nonobstructing right interpole calculus. No hydronephrosis. The kidneys are normal in size, shape, and attenuation. BLADDER: Distended without focal wall thickening. Redemonstration of small anterosuperior bladder wall fatty deposition. No bladder calculi. GASTROINTESTINAL TRACT: Small hiatal hernia. The small and large bowel are nondilated. Mild scattered diverticulosis without evidence of acute diverticulitis. No contrast extravasation to suggest active gastrointestinal bleeding. No evidence for appendicitis. ABDOMINAL WALL: No significant hernia is appreciated. LYMPH NODES: There are prominent though not pathologically enlarged lymph nodes in the left upper quadrant mesentery with mild associated stranding in this region. Appearance is improved from 11/19/2023. VASCULAR: Abdominal aorta is nonaneurysmal atherosclerotic ossifications. PELVIC VISCERA: The uterus and adnexa are unremarkable. OSSEOUS STRUCTURES: Unremarkable CT/CT gi bleed abd pel wo/w IVcon IMPRESSION: 1. No contrast extravasation to suggest active gastrointestinal bleeding. 2. Mild scattered diverticulosis without evidence of acute diverticulitis. 3. Nonobstructing bilateral renal calculi. Fleischner guidelines were followed. Electronically signed by: Valeri Chatman DO 09/28/2024 04:16 PM [facility]
[2024-09-28 07:36] VITALS: BP 130/75; PULSE 86; RESP 20; TEMP 36.5; O2SAT 98; BMI 32.0
[2024-09-28 08:00] VITALS: BP 128/73; PULSE 76; RESP 18; TEMP 36.6; O2SAT 97
[2024-09-28 08:12] LABS: MANUAL DIFF FLAG NO
[2024-09-28 08:14] LABS: Basophils Percent Auto 0.6 % (0-2); Eosinophils Absolute Auto 0.1 X10*3/uL (0.0-0.4); Eosinophils Percent Auto 1.4 % (0-4); Hematocrit 38.3 % (37.0-47.0); Hemoglobin 12.6 g/dl (12.0-16.0); Imm Gran Abs Auto 0.01 X10*3/uL (0.00-0.03); Imm Gran Pct Auto 0.1 % (0.0-0.4); Lymphocytes Absolute Auto 2.3 X10*3/uL (1.2-4.9); Lymphocytes Percent Auto 32.6 % (20-40); Mean Corpuscular HGB Conc 32.9 g/dl (31.0-35.0); Mean Platelet Volume 9.9 fL (9.4-12.3); Monocytes Absolute Auto 0.5 X10*3/uL (0.1-1.2); Monocytes Percent Auto 7.6 % (2-11); Neutrophils Absolute Auto 4.1 x10*3/uL (2.0-8.3); Neutrophils Percent Auto 57.7 % (45-73); Platelet Count 245 X10*3/uL (160-400); Red Blood Count 4.35 X10*6/uL (4.20-5.50); Red Cell Distribution Width 12.5 % (11.0-16.0); White Blood Count 7.1 X10*3/uL (4.8-10.8)
[2024-09-28 08:27] LABS: Alanine Aminotransferase 22 U/L (0-31); Albumin Level 4.1 g/dL (3.5-5.0); Alkaline Phosphatase 74 U/L (39-117); Anion Gap 12 (12-20); Aspartate Amino Transferase 27 U/L (5-31); Bilirubin Total 0.4 mg/dL (0.0-1.0); Blood Urea Nitrogen 19 mg/dL (9-16); Calcium 9.4 mg/dL (8.4-10.2); Carbon Dioxide 23 mmol/L (22-29); Chloride 109 mmol/L (96-108); Creatinine Clr Calc Pharmacy 99.9; Estimated Glomerular Filt Rate > 60; Glucose Random 101 mg/dL (60-115); Potassium 3.9 mmol/L (3.3-5.1); Sodium 140 mmol/L (135-145); Total Protein 7.3 g/dL (6.5-8.0)
--- NOTE | 2024-09-28 10:52 | ED_ITS ---
HPI - GI Bleed General Chief complaint: GI Bleed Stated complaint: back pain-blood in stool-swollen hands and feet Time Seen by Provider: 09/28/24 10:02 Source: patient Mode of arrival: ambulatory Limitations: no limitations History of Present Illness ED Provider: CARLOTTA PELAYO Narrative: 49 yo female with PMH of psoriasis on therapy prior rectal bleeding states she was told her colonoscopy at [facility] February of this year was normal. She has no hx of IBD. For the past 5 days she has had intermittent swelling in hands and feet along with brbpr x 3 a day with BM. She is not leaking on her underwear, no thinners or aspirin use. Has clots as well. She denies fevers and has no abdominal pain MD complaint: gross hematochezia Onset (ago): day(s) (5) Pain Consistency: intermittent Severity: mild Relieving factors: none Exacerbating factors: none Context: history of GI bleed Associated symptoms: denies other symptoms Related Data Home Medications ?Medication ?Instructions ?Recorded ?Confirmed Cosentyx Q4W 03/03/22 11/19/23 albuterol sulfate 90 mcg/actuation 1 - 2 puff inhalation Q4-6H PRN 03/03/22 11/19/23 aerosol inhaler cough fluticasone furoate 100 1 puff inhalation DAILY 03/03/22 11/19/23 mcg-vilanterol 25 mcg/dose inhalation powder (Breo Ellipta) Previous Rx's ?Medication ?Instructions ?Recorded benzonatate 200 mg capsule 200 mg PO TID PRN cough #20 caps 04/01/23 fexofenadine 180 mg tablet 180 mg PO DAILY #20 tabs 04/01/23 (Monik Allergy) fluticasone furoate 200 1 inh inhalation DAILY #60 ea 04/01/23 mcg-vilanterol 25 mcg/dose inhalation powder (Breo Ellipta) fluticasone propionate 50 2 spray intranasal DAILY #16 grams 04/01/23 mcg/actuation nasal spray,suspension (Flonase Allergy Relief) allopurinol 100 mg tablet 100 mg PO DAILY 90 days #90 tabs 11/19/23 pyridoxine (vitamin B6) 100 mg 100 mg PO DAILY #90 tabs 11/19/23 tablet tamsulosin 0.4 mg capsule 0.4 mg PO BEDTIME #30 caps 03/31/24 Allergies Allergy/AdvReac Type Severity Reaction Status Date / Time clindamycin [CLINDAMYCIN] Allergy Unknown Diarrhea Verified 09/28/24 07:38 azithromycin Allergy Diarrhea Verified 09/28/24 07:38 oxycodone AdvReac Tachycardia Verified 09/28/24 07:38 Review of Systems 2 Review of Systems: Constitutional : No Fever, No Chills, No Fatigue ENT/Mouth : No sore throat, No Rhinorrhea Eyes: No Eye Pain, No Swelling, No Redness Cardiovascular : No Chest Pain, No SOB, No Dyspnea on Exertion Respiratory : No Cough, No Sputum Gastrointestinal : No Nausea, No Vomiting, No Diarrhea, No abdominal Pain, pos hematochezia Genitourinary : No Dysuria, No Urinary Frequency, No Hematuria, Musculoskeletal : No joint pain, No Myalgias, No Joint Swelling Skin : No Skin Lesions, No rash Neuro : No Weakness, No Numbness, No Dizziness, positive Headache Psych : No Anxiety/Panic, No Depression All other systems reviewed and are negative [facility] Past Medical History Attestation statement: The following information was validated with the patient. Source: old records reviewed Medical History Arthritis of left knee Migraines Seizure in childhood Renal calculi Psoriasis Asthma Surgical History History of cystoscopy History of appendectomy History of hysterectomy Social History Social History Are you a primary wound care coordinator to a significant other at home: No Do you presently have visiting nurse or other home services: No Alcohol intake: former Patient Tobacco Use Status: Never used Tobacco Smoked in Last 30 Days: No Use of substances other than those prescribed or required for medical reasons: No Advance Directives: No Advance Directives Information Provided: Yes Patient : No Physical Exam 2 Vital Signs: Vital Signs: Last Vital Signs Temp 97.3 F 09/28/24 14:33 Pulse 67 09/28/24 14:33 Resp 18 09/28/24 14:33 BP 113/68 09/28/24 14:33 Pulse Ox 99 09/28/24 14:33 O2 Del Method Room Air 09/28/24 14:33 BMI result Body Mass Index 32.0 Appearance: Alert. Oriented X3. No acute distress. Eyes: Pupils equal, round and reactive to light. ENT: Pharynx normal. Neck: Normal inspection. Neck supple. CVS: Normal heart rate and rhythm. Pulses normal. Respiratory: No respiratory distress. Breath sounds normal. Abdomen: Soft and nontender. Skin: Skin warm and dry. Normal skin color. Normal skin turgor. Extremities: No lower extremity edema. No calf ttp Neuro: Oriented X 3. No motor deficit. No sensory deficit. Course Course Course Narrative: H/H stable NO bleeding episodes here as of 8 hours 3 days of symptoms no anemia Reevaluation(s) Reevaluation #1: signed out to Dr. Gonsalez pending CT scan repeat calls to radiology about CT scan Medications Administered Discontinued Medications Generic Name Dose Route Start Last Admin Trade Name Freq PRN Reason Stop Dose Admin Iohexol 100 ml 09/28/24 11:24 09/28/24 11:25 Iohexol 350 Mg/Ml 100 Ml Infus..Btl IV 09/28/24 11:25 80 ml ONCE ONE Administration Medical Decision Making Medical Decision Making [facility] Narrative: 49 yo female with PMH of psoriasis on therapy here with brbpr rectum x 5 days with BM only about 3 a day she is not bleeding into her underwear. She has no pain, fevers, recent abx use. She had recent colonoscopy. At this time CBC, basic labs and CT scan for GI bleed protocol ordered. Differential Diagnosis Differential Diagnoses: The differential diagnosis associated with the presentation includes rectal bleeding, internal hemorrhoids, lower GIB Admission/Observation Consideration of admission/observation: Escalation of care including admission/observation considered Lab Data [facility] Lab Attestation statement: I reviewed the patient's lab results. 09/28/24 08:05 09/28/24 08:05 Labs: Lab Results 09/28/24 Range/Units 08:05 WBC 7.1 (4.8-10.8) X10*3/uL RBC 4.35 (4.20-5.50) X10*6/uL Hgb 12.6 (12.0-16.0) g/dl Hct 38.3 (37.0-47.0) % MCV 88.0 (80.0-98.0) fL MCH 29.0 (27.0-33.0) pg MCHC 32.9 (31.0-35.0) g/dl RDW 12.5 (11.0-16.0) % Plt Count 245 (160-400) X10*3/uL MPV 9.9 (9.4-12.3) fL Immature Gran % (Auto) 0.1 (0.0-0.4) % Neut % (Auto) 57.7 (45-73) % Lymph % (Auto) 32.6 (20-40) % [place] % (Auto) 7.6 (2-11) % Eos % (Auto) 1.4 (0-4) % Baso % (Auto) 0.6 (0-2) % Lymph # (Auto) 2.3 (1.2-4.9) X10*3/uL [place] # (Auto) 0.5 (0.1-1.2) X10*3/uL Eos # (Auto) 0.1 (0.0-0.4) X10*3/uL Baso # (Auto) 0.0 (0.0-0.2) X10*3/uL Abs Immat Gran (auto) 0.01 (0.00-0.03) X10*3/uL Absolute Neuts (auto) 4.1 (2.0-8.3) x10*3/uL Absolute Nucleated RBC 0.000 (0.0-0.012) X10*3/uL Nucleated RBC % (auto) 0.0 (0.0-0.2) /100WBC Sodium 140 (135-145) mmol/L Potassium 3.9 (3.3-5.1) mmol/L Chloride 109 H (96-108) mmol/L Carbon Dioxide 23 (22-29) mmol/L Anion Gap 12 (12-20) BUN 19 H (9-16) mg/dL Creatinine 0.65 (0.5-1.4) mg/dL Estim Creat Clear Calc 99.9 Estimated GFR > 60 Random Glucose 101 (60-115) mg/dL Calcium 9.4 (8.4-10.2) mg/dL Total Bilirubin 0.4 (0.0-1.0) mg/dL AST 27 (5-31) U/L ALT 22 (0-31) U/L Alkaline Phosphatase 74 (39-117) U/L Total Protein 7.3 (6.5-8.0) g/dL Albumin 4.1 (3.5-5.0) g/dL Independent Interpretation I performed an independent interpretation of an: CT Scan Radiology Impression Discussion of test interpretation with radiology: I have reviewed the radiologist's reading. Discharge Plan Discharge Clinical Impression: Bright red rectal bleeding Patient Disposition: Still a Patient Instructions: Rectal Bleeding (ED) Additional Instructions: labs reassuring please follow up with your GI doctor return for any worsening symptoms, bleeding, dizziness, pain or any other concerns hemoglobin normal avoid aspirin Prescriptions: No Action tamsulosin 0.4 mg capsule 0.4 mg PO BEDTIME Qty: 30 1RF albuterol sulfate 90 mcg/actuation HFA aerosol inhaler 1 - 2 puff inhalation Q4-6H PRN (Reason: cough) Breo Ellipta 100-25 mcg/dose blister with device 1 puff inhalation DAILY Cosentyx Q4W fluticasone propionate [Flonase Allergy Relief] 50 mcg/actuation spray,suspension 2 spray intranasal DAILY Qty: 16 0RF Rx Instructions: administer into each nostril benzonatate 200 mg capsule 200 mg PO TID PRN (Reason: cough) Qty: 20 0RF fluticasone furoate-vilanterol [Breo Ellipta] 200-25 mcg/dose blister with device 1 inh inhalation DAILY Qty: 60 0RF fexofenadine [Monik Allergy] 180 mg tablet 180 mg PO DAILY Qty: 20 0RF allopurinol 100 mg tablet 100 mg PO DAILY 90 Days Qty: 90 3RF pyridoxine (vitamin B6) 100 mg tablet 100 mg PO DAILY Qty: 90 3RF Print Language: Czech
--- NOTE | 2024-09-28 10:59 | PC.NURSE ---
a&ox4. vss and up to date. nsr on the compliance monitor. pt presents to the ED w/ bright red blood w/ associated clots intermittently x 1 year. pt reports increased sx x 3 days. pt also reports episodes of dizziness. pt denies any abd pain, episodes of nausea/vomiting. not on blood thinners. 20gIV placed in the right forearm - patent/intact. pt waiting to go to CT at this time. no sob/wob noted. respirations even/unlabored. plan of care ongoing. call thomason placed within reach.
--- NOTE | 2024-09-28 11:10 | PC.NURSE ---
pt to CT at this time. plan of care ongoing.
[2024-09-28] MEDS: iohexoL 350 MG/ML 100 ML INFUS..BTL IV (11:25)
[2024-09-28 11:51] VITALS: BP 105/69; PULSE 67; RESP 18; TEMP 36.6; O2SAT 98
[2024-09-28 14:33] VITALS: BP 113/68; PULSE 67; RESP 18; TEMP 36.3; O2SAT 99
--- NOTE | 2024-09-28 15:30 | PC.NURSE ---
pt continues to rest in no apparent distress. waiting for CT results at this time. denies pain. no episodes of n/v/d since ED arrival. no sob/wob noted. respirations even/unlabored. plan of care ongoing. call thomason placed within reach.
[2024-09-28 16:59] VITALS: BP 113/68; PULSE 67; RESP 18; TEMP 36.3; O2SAT 99
== END 2024-09-28 17:20 | disposition home or self-care (01) ==
PROVIDERS: Emergency Medicine; Emergency Provider Emergency Medicine; PCP Internal Medicine
DX: M54.50 Low back pain, unspecified (principal); K92.1 Melena; R10.2 Pelvic and perineal pain; Z79.899 Other long term (current) drug therapy
CPT/HCPCS: 36415; 74178; 80053; 85025; 99284; Q9967

== ENCOUNTER 2024-10-13 16:07 | Outpatient (REF) | payer OTHER, SELFPAY | END 2024-10-13 16:08 | disposition home or self-care (01) | LOC: HO.US 16:07 | PROVIDERS: PCP Internal Medicine; Visit Provider Urology | DX: N20.0 Calculus of kidney (principal); R10.9 Unspecified abdominal pain | CPT/HCPCS: 76775 ==